=== PATIENT | female | born 1955 | race Caucasian/White ===

== ENCOUNTER 2018-08-10 09:40 | Outpatient (REF) | payer MEDICAID, SELFPAY ==
--- NOTE | 2018-08-10 09:20 | PAPFT_PTH ---
PATIENT: Haydee Brizuela LOC: [facility] U#:[id number] AGE/SX: 62/F ROOM: RE08/10/[address]: Magy Brito : 1955 BED: DIS: 08/10/2018 SPEC #: [id number] RECD: 08/11/18 12:54 STATUS: YULIA REBernadette #: [id number] ADELITA: 08/10/18 09:[address]: Magy Brito DEPT: [facility] Cytology RECD BY: Hailey Espitia ENTERED: 08/11/18 12:54 SP TYPE: PAPFT OTHR DR: Lexii Xiong Tissues: 1 - CX/ENDOCX FOR PAP SMEARS Procedures: PAP THIN PREP/UVM Screening HPV DNA PROBE Comments: [id number]
[2018-08-10 19:33] LABS: Cholesterol 186 mg/dL (50-200); Glucose 97 mg/dL (70-100); HDL Cholesterol 89 mg/dL (40-60); LDL CHOLESTEROL 77 mg/dL (<100); Triglyceride 60 mg/dL (30-150)
[2018-08-12 09:48] LABS: Hepatitis C Ab w Rflx HCV PCR Negative (NEGAT)
== END 2018-08-10 10:00 ==
LOC: NCHCN 09:40
PROVIDERS: PCP Family Medicine; Visit Provider Nurse Practitioner Family
DX: Z13.1 Encounter for screening for diabetes mellitus (principal); Z11.59 Encounter for screening for other viral diseases; Z13.220 Encounter for screening for lipoid disorders; Z12.4 Encounter for screening for malignant neoplasm of cervix; Z11.51 Encounter for screening for human papillomavirus (HPV); Z01.419 Encounter for gynecological examination (general) (routine) without abnormal findings
CPT/HCPCS: 80061; 82947; 83721; 86803; 88142; 87624

== ENCOUNTER 2020-04-20 11:59 | Outpatient (REF) | payer MEDICAID, SELFPAY ==
--- OUTSIDE RECORDS SUMMARY | 2020-04-20 12:05 | XMS_ITS ---
:1955 Author Care Team Providers Name Role Phone NETO LINDSEY NP Primary Care Provider [phone] RAVI SOTO MD General Surgeon [phone] Allergies Code Code System Name Reaction Severity Status Onset [id number] RxNorm Clams Hives ? Active ? NKDA ? Medications Name Status Start Date Stop Date ? ? aspirin 325 mg tablet Completed ? 10/27/2019 Take 1 tablet every day by oral route. ciprofloxacin 0.3 % eye drops Completed ? INSTILL 1 DROP INTO AFFECTED EYE(S) BY OPHTHALMIC ROUTE EVERY 2 HOURSWHILE AWAKE FOR 2 DAYS THEN 1 DROP EVERY 4 HRS WHILE AWAKE FOR 5 DAYS ibuprofen 200 mg tablet Active ? Not avai lable Take 1 tablet every 6 hours by oral route as needed. omeprazole 20 mg capsule,delayed release Active ? Not available Take 1 capsule every day by oral route. triamcinolone 0.1 % topical ointment Active ? Not available and dimethicone 5 % topical cream Zantac 150 mg tablet Active ? Not availab le Take 1 tablet twice a day by oral route as needed. Problems Name Status Onset Date Source ? Basal Cell Carcinoma of Skin Active 10/04/2019 ? Squamous Cell Carcinoma Active 10/04/2019 ? Anxiety Active 10/04/2019 ? Conjunctivitis Active 10/04/2019 ? Premature Atrial Contraction Active 10/04/2019 ? Gastroesophageal Reflux Disease Active 10/04/2019 ? Hiatal Hernia Active 10/04/2019 ? Arthritis Active 10/04/2019 ? 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 Procedures Date Name Performed by ? 03/14/2009 Colonoscopy Information not avai lable Notes: WNL 03/14/2009 EGD/Endoscopy Information not avai lable Notes: sm hiatal hernia, gastritis. ? Arthroscopic Surgery Information not mack ilable ? Knee Surgery Information not avai lable ? Tonsillectomy Information not avai lable ? Appendectomy Information not avai lable Results Lab Results Date Name Specimen Result Interpretation Description Value Range Status Address ? 11/14/2016 TSH, S ? Tsh 1.67 0.47-4.68 Final [facility] Serum or u[IU]/mL u[IU]/mL Hosp ital Lab Plasma (Internal) : [address] t 11/14/2016 CMP, S High g/r 148 mg/dL 74-106 Final [facility] Serum or mg/dL Hospital Lab Plasma (Internal) : [address] t ? ? S ? Bun 14 mg/dL 7-17 mg/dL Final [facility] Hospital L ab (Internal) : [address] t ? ? S ? Crea 0.70 mg/dL 0.52-1.04 Final [facility] mg/dL Hospital L ab (Internal) : [address] t ? ? S ? Ca 9.3 mg/dL 8.4-10.2 Final [facility] mg/dL Hospital L ab (Internal) : [address] t ? ? S ? Na 138 mmol/L 137-145 Final [facility] mmol/L Hospital L ab (Internal) : [address] t ? ? S ? K 3.7 mmol/L 3.5-5.1 Final [facility] mmol/L Hospital L ab (Internal) : [address] t ? ? S ? Cl 105 mmol/L 98-107 Final [facility] mmol/L Hospital L ab (Internal) : [address] t ? ? S ? Tco2 23.0 mmol/L 22.0-30.0 Final No [facility] mmol/L Hospital L ab (Internal) : [address] t ? ? S ? Tp 7.0 g/dL 6.3-8.2 Final [facility] g/dL Hospital L ab (Internal) : [address] t ? ? S ? Alb 4.3 g/dL 3.5-5.0 Final [facility] g/dL Hospital L ab (Internal) : [address] t ? ? S ? Tbil 0.5 mg/dL 0.2-1.3 Final [place] [facility] mg/dL Hospital L ab (Internal) : [address] t ? ? S ? Alp 61 U/L 38-126 U/L Final [facility] Hospital L ab (Internal) : [address] ? ? S ? Alt 23 U/L 9-52 U/L [facility] (S[facility] Hospital L ab (Internal) : [address] ? ? S ? Ast 33 U/L 14-36 U/L [facility] Hospital L ab (Internal) : [address] Past Encounters 10/27/2019 Gastroesophageal Reflux Disease without Esophagitis; Screening for Malignant Neoplasm of Colon Ravi Soto MD: [address], [place] [address], Ph. Social History Tobacco Smoking Status Never Smoker Vaccine List None recorded. Plan of Care Reminders Provider Appointments None ? ? recorded. Lab None ? ? recorded. Referral None ? ? recorded. Procedures None ? ? recorded. Surgeries None ? ? recorded. Imaging None ? ? recorded. Vitals 10/27/2019 12:30PM Office 15 Height Weight BMI Blood Pressure 175.9 cm 65.41 kg 21.1 kg/m2 122/78 mm[Hg] 08/31/2019 Height 175.9 cm
[2020-04-23 13:18] LABS: COVID-19 RT-PCR UVMMC Result Negative (Negative)
== END 2020-04-20 12:19 ==
LOC: NCHCN 11:59
PROVIDERS: PCP Nurse Practitioner Family; Visit Provider Nurse Practitioner Family
DX: Z20.828 Contact with and (suspected) exposure to other viral communicable diseases (principal)
CPT/HCPCS: U0003

== ENCOUNTER 2020-08-06 11:46 | Emergency (ER) | payer MEDICAID, SELFPAY ==
[2020-08-06] VITALS (37 sets, daily range): BP systolic 113–145; BP diastolic 70–86; PULSE 63–92; RESP 12–23; TEMP 36.6; O2SAT 95–98
--- NOTE | 2020-08-06 11:45 | RT.EKG_ITS ---
APPROVED REPORT Exam: Resting ECG Patient Location: E HR:84 bpm ECG Measurements Heart Rate 84 AXIS AZ 164 P 59 QRSd 108 QRS -56 QT 382 T 55 QTc 453 Conclusion Sinus rhythm...normal P axis, V-rate 60- 99 Left anterior fascicular block...axis(240,-40), init forces inf No STEMI. I have reviewed and interpreted ECG and agree with software generated interpretation.
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
[2020-08-06 12:13] LABS: Abs Immature Grans 0.02 10^3/uL (0.0-0.06); Absolute Basophil Count 0.04 10^3/uL (0.0-0.2); Absolute Eosinophil Count 0.05 10^3/uL (0.0-0.7); Absolute Lymphocyte Count 2.36 10^3/uL (1.2-3.4); Absolute Monocyte Count 0.45 10^3/uL (0.1-0.8); Absolute Neutrophil Count 5.64 10^3/uL (1.2-6.7); Basophils % 0.5; Eosinophils % 0.6; HCT 41.1 % (36.0-46.0); HGB 13.7 g/dL (11.2-15.7); Immature Grans % 0.2; Lymphocytes % 27.6; MCH 29.3 pg (27.0-33.0); MCHC 33.3 % (32.0-36.0); MPV 9.7 fL (8.0-11.0); Monocytes % 5.3; Neutrophils % 65.8; Nucleated RBC 0 %; Platelet Count 269 10^3/uL (130-400); RBC 4.67 10^6/uL (3.93-5.22); RDW 13.2 % (11.7-14.6); RDW-SD 42.5 fL; WBC 8.56 10^3/uL (4.4-10.8)
[2020-08-06 12:26] LABS: PTT Activated 23.4 sec (21.0-27.5); Prothrombin Time 10.4 sec (9.3-11.0)
--- NOTE | 2020-08-06 12:30 | DI.CT_ITS ---
EXAM: CT CHEST PE CTA CLINICAL HISTORY: palpitations, chest pressure, r/o acute PE/disease. TECHNIQUE: Imaging Protocol: Axial CT angiography was performed with multi-slice acquisition and mu lti-planar and/or 3D reconstructions. CONTRAST MATERIAL: Intravenous: Omnipaque 350 Contrast volume:structured data in ml COMPARISON: No exams were available for comparison FINDINGS: CT angiography of the chest was performed with intravenous infusion of 75 cc of Visipaque 320. The lungs are clear. No pleural effusion. Tracheobronchial tree appears intact. No evidence of pulmonary embolic disease. Thoracic aorta is of normal diameter, no thoracic aortic an eurysm or dissection, major branch vessels appear intact. No mediastinal or hilar adenopathy. Images obtained through the upper abdomen show unremarkable appearance of the visualized portions of the liver, spleen, pancreas, adrenals, and kidneys. IMPRESSION: Negative CT angiogram of the chest. No evidence of pulmonary embolic disease. RADIATION DOSE DELIVERED: 286.11mGy.cm Total DLP 286.11mGy.cm Total DLP DATA REPOSITORY: All CT scans at this facility are submitted to the National Radiology Data Registry (NRDR) Dose Index Registry (DIR) with the [employer] ([employer]). RADIATION OPTIMIZATION: All CT scans at this facility use at least one of these dose optimization te chniques: automated exposure control; mA and/or kV adjustment per patient size (includes targeted exa ms where dose is matched to clinical indication); or iterative reconstruction.
[2020-08-06 12:33] LABS: ALT 24 U/L (14-59); AST 18 U/L (15-37); Albumin 4.2 g/dL (3.4-5.0); Alkaline Phosphatase 66 U/L (46-116); Anion Gap 11.5 mmol/L (3-11); BUN 15 mg/dL (7-18); Bilirubin, Total 0.7 mg/dL (0.2-1.0); CO2 24.5 mmol/L (21.0-32.0); CREATININE 1.1 mg/dL (0.55-1.02); Calcium 9.5 mg/dL (8.5-10.1); Chloride 103 mmol/L (98-107); Estimated GFR 50.17 (mL/min/1.73m2); Glucose 112 mg/dL (74-106); Magnesium 2.1 mg/dL (1.8-2.4); Potassium 3.5 mmol/L (3.5-5.1); Sodium 139 mmol/L (136-145); Total Protein 7.1 g/dL (6.4-8.2); Troponin I < 0.05 ng/mL (<0.06)
[2020-08-06] MEDS: Ketorolac 30 MG/ML VIAL IVP (12:46)
[2020-08-06] MEDS: LORazepam 0.5 MG TAB PO (12:46)
[2020-08-06] MEDS: Normal Saline - Diluent 50 ML VIAL IV (13:14)
[2020-08-06] MEDS: Normal Saline 1,000 ML 1000 ML IV (13:21)
--- NOTE | 2020-08-06 14:45 | RT.EKG_ITS ---
APPROVED REPORT Exam: Resting ECG Patient Location: E HR:67 bpm ECG Measurements Heart Rate 67 AXIS IL 192 P 67 QRSd 104 QRS -46 QT 400 T 27 QTc 423 Conclusion Sinus rhythm...normal P axis, V-rate 60- 99 Left anterior fascicular block...axis(240,-40), init forces inf. No STEMI. I have reviewed and interpreted ECG and agree with software generated interpretation.
[2020-08-06 15:30] LABS: Troponin I < 0.05 ng/mL (<0.06)
== END 2020-08-06 16:13 | disposition home or self-care (01) ==
PROVIDERS: Emergency Provider Physician Assistant; PCP Nurse Practitioner Family
DX: R00.2 Palpitations (principal); R07.89 Other chest pain
CPT/HCPCS: 71275; 80053; 93005; 96361; 96374; 99285; 83735; 84484; 85025; 85610; 85730; 93010; 93225; 99284; J1885

== ENCOUNTER 2020-08-06 15:02 | Outpatient (RCR) | payer MEDICAID, SELFPAY ==
--- NOTE | 2020-08-06 15:00 | HOLTER_ITS ---
APPROVED REPORT Exam Type: HOLTER MONITOR APPLICATION Reason for Test: PALPITATIONS R00.2 Patient Location: O Conclusion This was a 48-hour Holter monitor ordered for palpitations Predominant rhythm was sinus with an average heart rate of 68. Minimum was 48, maximum 123 There were rare atrial and ventricular ectopic beats. There were several brief atrial runs Sinus bradycardia and Mobitz 1 second-degree AV block was noted during sleep There appeared to be an episode of atrial fibrillation lasting less than a minute, rate approximately 140, asymptomatic Patient symptoms seem to correlate to sinus rhythm
== END 2020-08-18 23:59 | disposition home or self-care (01) ==
LOC: RT 15:02
PROVIDERS: PCP Nurse Practitioner Family; Visit Provider Nurse Practitioner Family
DX: R00.2 Palpitations (principal)
CPT/HCPCS: 93225; 93226

== ENCOUNTER 2020-08-25 16:18 | Outpatient (REF) | payer MEDICAID, SELFPAY ==
[2020-08-25 19:39] LABS: TSH (W/Ref FT4) 2.45 uIU/mL (0.36-3.74)
[2020-08-28 10:29] LABS: Lyme Ab w Rflx to Lyme Confirm Negative (Negative)
[2020-08-30 00:46] LABS: Anaplasma phagocytophilum Negative (Negative); B. miyamotoi PCR Negative (Negative); Babesia divergens/MO-1 Negative (Negative); Babesia duncani Negative (Negative); Babesia microti Negative (Negative); Ehrlichia chaffeensis Negative (Negative); Ehrlichia ewingii/canis Negative (Negative); Ehrlichia muris eauclairensis Negative (Negative)
== END 2020-08-25 16:19 | disposition home or self-care (01) ==
LOC: NCHCN 16:18
PROVIDERS: PCP Nurse Practitioner Family; Visit Provider Physician Assistant
DX: I48.0 Paroxysmal atrial fibrillation (principal); I44.1 Atrioventricular block, second degree; M25.59 Pain in other specified joint
CPT/HCPCS: 87798; 84443; 86618

== ENCOUNTER 2020-08-28 12:13 | Outpatient (CLI) | payer MEDICAID, SELFPAY ==
--- NOTE | 2020-09-15 08:33 | W.ZIOMONITOR ---
Date of service: 09/15/20 Time of Service: 08:33 14 Day [employer] Technician [employer] Referring Provider:: Lindsey Indications:: A Note: This is a 14-day monitor order for indication of atrial fibrillation. ?The patient was in normal sinus rhythm for the majority of the recording with an average heart rate of 70 bpm. ?There were frequent (205) episodes of SVT with the longest lasting 43 beats. The fastest rate was 198 bpm. ?There were rare PACs and rare PVCs. ?There were no episodes of atrial fibrillation, no pauses greater than 3 seconds and no evidence of high degree heart block. ?There were 35 patient triggered events 20 of which were associated with SVT.
== END 2020-08-28 12:14 | disposition home or self-care (01) ==
PROVIDERS: PCP Nurse Practitioner Family; Visit Provider Physician Assistant
DX: I48.0 Paroxysmal atrial fibrillation (principal); I44.1 Atrioventricular block, second degree
CPT/HCPCS: 93246

== ENCOUNTER 2020-09-30 19:20 | Emergency (ER) | payer MEDICAID, SELFPAY ==
--- NOTE | 2020-09-30 19:21 | W.ED.GENAD ---
Discharge Plan Disposition Patient Disposition: HOME Condition: Stable Discharge Details Clinical Impression: Foreign body of skin of hand Primary Care Provider: Magy Brito ED Provider: Mallorie Fonseca Home Meds and New Rx's Prescriptions: Continued Vitamin D3 Complete 18 mg iron-800 mcg-150 mg Tablet 2 tab PO RF: 0 lysine 1,000 mg Tablet 1,000 mg PO DAILY RF: 0 Discharge Instructions Instructions: Soft Tissue Foreign Body (ED), Tick Bite (ED) Additional Instructions: It is unclear at this time if the foreign body noted within your skin was a tick or other foreign body material. You are being treated with a prophylactic dose of doxycycline in case this was possibly a tick. Keep the area clean and dry. Wash with soap and water and apply topical antibiotic ointment if you develop any redness, pain or swelling. If you develop any fever, chills, body aches or bull's-eye rash, follow-up with your primary care doctor or return to the emergency department as additional antibiotic treatment for potential Lyme disease may be recommended. Follow-up with your primary care doctor in 1 week. Return to the emergency department with any worsening or new concerning symptoms. Discharge Data Discharge Physician: Mallorie Fonseca Medical Decision Making 65-year-old female presents for concern for possible tick in her left hand noticed today. There is a 2 x 1 mm linear brown foreign body noted within the left medial aspect of hand. This was removed easily and disintegrated with forceps. Examination of the foreign body revealed that it appeared more consistent with debris or dirt rather than a tick or insect. As patient has not developed any flulike symptoms or bull's-eye rash, do not see an indication for treatment for Lyme disease but as she was concerned about it possibly being a tick, will give a dose of doxycycline. She was advised to follow-up with her primary care doctor or return to the emergency department if she develops any worsening or new concerning symptoms. Medical Records Medical records reviewed: Yes I reviewed the patient's medical records. HPI General Mode of arrival: ambulatory. Date/Time Provider Initiated Documentation: 09/30/20 19:20. Limitations to Documentation: no limitations. Information obtained by: patient. HPI Narrative: Pt is a 65yo F who presents to the ED with a complaint of a possible tick embedded in her left hand. Patient states she noticed it a few hours ago but states it may have been present for a few days. She denies any fever, chills, body aches or bull's-eye rash. Related Data Home Medications Medication Instructions Recorded Confirmed Vitamin D3 Complete 2 tab PO 09/30/20 lysine 1,000 mg PO DAILY 09/30/20 09/30/20 Allergies Allergy/AdvReac Type Severity Reaction Status Date / Time clams AdvReac hives Unverified 09/30/20 19:28 General KEVIN: 2 Review of Systems All systems reviewed & are unremarkable except as noted in HPI and below Constitutional Constitutional: Reports as per HPI, Denies chills and Denies fever(s) Eyes Eyes: Denies blurry vision ENT Ears, Nose, Mouth, and Throat: Denies dizziness, Denies sore throat and Denies throat swelling Cardiovascular Cardiovascular: Denies chest pain and Denies dyspnea Respiratory Respiratory: Denies cough and Denies dyspnea Gastrointestinal Gastrointestinal: Denies abdominal pain, Denies diarrhea and Denies vomiting Genitourinary Genitourinary: Denies hematuria and Denies dysuria Musculoskeletal Musculoskeletal: Denies back pain and Denies numbness Integumentary/Breasts Skin/Breast: Denies lesions and Denies rash Neurologic Neurologic: Denies dizziness, Denies localized weakness and Denies numbness Allergic/Immunologic Allergic/Immunologic: Denies throat swelling [facility] Medical History (Updated 09/30/20 @ 19:40 by Mallorie Fonseca DO) Arthritis Basal cell carcinoma Squamous cell carcinoma Surgical History (Updated 08/06/20 @ 11:57 by Mallorie Fonseca DO) Appendectomy History of knee surgery S/P skin cancer resection Tonsillectomy and adenoidectomy Social History Smoking/Tobacco Use Status: Former Tobacco Use Smoking risk assessment performed?: Yes Alcohol Intake: current Drug use: Never Substance use type: does not use Do you feel safe at home: No Do you feel safe in your relationship?: No Additional Social history: patient states she does not feel safe at home emotionally Exam Const General: cooperative, healthy appearing and no acute distress HENMT Head: normal to inspection Mouth: oral mucosae normal Eyes General: appearance normal, both eyes and all related structures Neck Neck: normal visual inspection Resp Effort & Inspection: normal respiratory effort and able to speak in complete sentences Cardio Rate: regular rate Skin General skin exam: no rashes or lesions noted Neuro General: patient alert, patient awake and patient oriented x3 Motor: muscle tone normal throughout Extrem Hand/finger images: 1. 2 mm brown linear foreign body noted superficially within left medial proximal hand. No surrounding erythema, edema, ecchymosis, induration, fluctuance, drainage or bleeding. Psych Appearance: grossly normal Affect: normal affect
[2020-09-30 19:24] VITALS: BP 122/74; PULSE 66; RESP 18; TEMP 36.7; O2SAT 98
[2020-09-30] MEDS: Doxycycline Hyclate 100 MG CAP PO (19:43)
== END 2020-09-30 19:50 | disposition home or self-care (01) ==
PROVIDERS: Emergency Provider Physician Assistant; PCP Nurse Practitioner Family
DX: S60.562A Insect bite (nonvenomous) of left hand, initial encounter (principal); S61.442A Puncture wound with foreign body of left hand, initial encounter; W57.XXXA Bitten or stung by nonvenomous insect and other nonvenomous arthropods, initial encounter
CPT/HCPCS: 99283

== ENCOUNTER 2021-01-10 09:13 | Outpatient (CLI) | payer MEDICAID, SELFPAY ==
--- OUTSIDE RECORDS SUMMARY | 2021-01-10 09:16 | XMS_ITS ---
:1955 Author Care Team Providers Name Role Phone RAVI STOO MD General Surgeon [phone] GURINDER CLINTON MD Primary Care Provider [phone] ELINOR RICO MD Bicycle Taxi Driver [phone] Allergies Code Code System Name Reaction Severity Status Onset Adhesive ? ? Active ? 754841 RxNorm Clams Hives ? Active ? NKDA ? Notes: clams only, tolerates oth er seafood, no contrast allergy Medications Name Status Start Date Stop Date ? ? aspirin 325 mg tablet Completed ? 10/27/2019 Take 1 tablet every day by oral route. ciprofloxacin 0.3 % eye drops Completed ? INSTILL 1 DROP INTO AFFECTED EYE(S) BY OPHTHALMIC ROUTE EVERY 2 HOURSWHILE AWAKE FOR 2 DAYS THEN 1 DROP EVERY 4 HRS WHILE AWAKE FOR 5 DAYS ibuprofen 200 mg tablet Completed ? 09/12/19 Take 1 tablet every 6 hours by oral route as needed. lysine 500 mg tablet Active ? Not availab le Take 1 tablet every day by oral route. omeprazole 20 mg capsule,delayed release Completed ? 09/11/2020 Take 1 capsule every day by oral route. triamcinolone 0.1 % topical ointment Active ? Not available and dimethicone 5 % topical cream Vitamin C 250 mg tablet Active ? Not avai lable 1-2 tabs daily Vitamin D3 Active ? Not available 2 tablets daily 1000 mg each Zantac 150 mg tablet Completed ? 09/11/2020 Take 1 tablet twice a day by oral route as needed. zolpidem 5 mg tablet Completed ? 11/30/2020 take 1-2 PO night of sleep study if needed Notes: 07/30/20: Pt reports she i s taking no prescription meds at this time, only vitamin supplements Problems Name Status Onset Date Source ? Basal Cell Carcinoma of Skin Active 10/04/2019 ? Squamous Cell Carcinoma Active 10/04/2019 ? Anxiety Active 10/04/2019 ? Conjunctivitis Active 10/04/2019 ? Premature Atrial Contraction Active 10/04/2019 ? Gastroesophageal Reflux Disease Active 10/04/2019 ? Hiatal Hernia Active 10/04/2019 ? Arthritis Active 10/04/2019 ? 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 Cannabis Abuse Active 09/13/2020 ? Second Degree Atrioventricular Block Active 09/13/2020 ? Atrial Fibrillation Active 09/13/2020 ? Joint Pain Active 09/13/2020 ? Daytime Somnolence Active 09/13/2020 ? Screening Colonoscopy Active 09/13/2020 ? 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 Procedures Date Name Performed by ? 03/14/2009 Colonoscopy Information not avai lable Notes: WNL 03/14/2009 EGD/Endoscopy Information not avai lable Notes: sm hiatal hernia, gastritis. ? Arthroscopic Surgery Information not mack ilable ? Knee Surgery Information not avai lable ? Tonsillectomy Information not avai lable ? Appendectomy Information not avai lable 09/11/2020 US, Echocardiogram, Transthoracic, [facility] Radiology (Internal) Complete [address] [place], [place] [id number] (Work Place) Results Lab Results Date Name Specimen Result Interpretation Description Value Range Status Address ? 07/30/2020 CBC W/ BLD ? Wbc 7.0 5.0-10.0 Final Nort [facility] Auto Diff 10*3/uL 10*3/uL Count [facility] L ab (Internal) : [address] ? ? BLD ? Rbc 4.57 4.10-5.30 Final [place] 10*6/uL 10*6/uL [facility] L ab (Internal) : [address] ? ? BLD ? Hgb 13.6 g/dL 12.0-16.0 Final Nort h g/dL [facility] L ab (Internal) : [address] ? ? BLD ? Hct 40.8 % 37.0-47.[address] [facility] L ab (Internal) : [address] ? ? BLD ? Mcv 89.3 fL 80.0-96.0 Final [facility] L ab (Internal) : [address] ? ? BLD ? Mch 29.8 pg 26.0-32.0 Final [facility] L ab (Internal) : [address] ? ? BLD ? Mchc 33.3 g/dL 31.0-35.0 Final Nort h g/dL [facility] L ab (Internal) : [address] ? ? BLD ? Rdw 13.3 % 11.5-14.[address] [facility] L ab (Internal) : [address] ? ? BLD ? Plt 273 130-450 Final [place] 10*3/uL 10*3/uL [facility] L ab (Internal) : [address] [place] t ? ? BLD ? Anc 5.33 ? Final [place] 10*3/uL [facility] L ab (Internal) : [address] ? ? BLD High Nlr 4.20 0.00-3.20 Final [facility] L ab (Internal) : [address] ? ? BLD High Neutro 75.8 % 40.0-75.[address] [facility] L ab (Internal) : [address] Robert t ? ? BLD Low Lymph 18.1 % 20.0-50.[address] [facility] L ab (Internal) : [address] [place] t ? ? BLD ? Bledsoe 5.4 % 2.0-10.0 % Final [facility] L ab (Internal) : [address] [place] t ? ? BLD Low Eos 0.3 % 1.0-6.0 % Final [facility] L ab (Internal) : [address] [place] t ? ? BLD ? Baso 0.3 % 0.0-1.0 % Final [facility] L ab (Internal) : [address] ? ? BLD ? Ig 0.1 % 0.0-0.9 % Final [facility] L ab (Internal) : [address], Robert t 07/30/2020 CK S ? Cpk 71 U/L 30-135 U/L Final No rth ([facility] Hospital Lab Total, (Internal) : Serum [address] t 07/30/2020 CMP, Serum S High g/r 117 mg/dL 74-106 Final [place] or Plasma mg/dL [facility] (Internal) : [address] t ? ? S ? Bun 14 mg/dL 7-17 mg/dL Final [facility] (Internal) : [address] t ? ? S ? Crea 1.00 0.52-1.04 Final [place] mg/dL mg/dL [facility] (Internal) : [address] t ? ? S ? Ca 9.3 mg/dL 8.4-10.2 Final [place] mg/dL [facility] (Internal) : [address] t ? ? S ? Na 141 137-145 Final [place] mmol/L mmol/L [facility] (Internal) : [address] t ? ? S ? K 3.8 3.5-5.1 Final [place] mmol/L mmol/L [facility] (Internal) : [address] t ? ? S ? Cl 105 98-107 Final [place] mmol/L mmol/L [facility] (Internal) : [address] t ? ? S ? Tco2 25.0 22.0-30.0 Final [place] mmol/L mmol/L [facility] (Internal) : [address] t ? ? S ? Tp 6.6 g/dL 6.3-8.2 Final [place] g/dL [facility] (Internal) : [address] t ? ? S ? Alb 4.3 g/dL 3.5-5.0 Final [place] g/dL [facility] (Internal) : [address] t ? ? S ? Tbil 0.4 mg/dL 0.2-1.3 Final [place] mg/dL [facility] (Internal) : [address] t ? ? S ? Alp 62 U/L 38-126 U/L Final [facility] L ab (Internal) : [address] t ? ? S ? Alt (Sgpt) 15 U/L 9-52 U/L Final [facility] L ab (Internal) : [address] t ? ? S ? Ast (Sgot) 23 U/L 14-36 U/L Final No rth [facility] (Internal) : [address] 07/30/2020 Magnesium, S ? mg 2.2 mg/dL 1.6-2.3 Final [place] QN, Serum mg/dL [facility]osp[facility] Lab (Internal) : [address] 07/30/2020 Troponin S ? Trop <0.06 0.00-0.06 Final N orth I, Serum NG/mL NG/mL [facility] or [facility] Lab (Internal) : [address] 07/30/2020 EKG Done ? No ? ? ? Nort h by ED observation Count ry recorded. Hospita l Lab (Internal) : [address] 11/14/2016 TSH, Serum S ? Tsh 1.67 0.47-4.68 Final [place] or Plasma u[IU]/mL u[IU]/mL [facility] L [facility] (Internal) : [address] 11/14/2016 CMP, Serum S High g/r 148 mg/dL 74-106 Final [facility] or Plasma mg/dL [facility] (Internal) : [address] t ? ? S ? Bun 14 mg/dL 7-17 mg/dL Final Nort h [facility] Hospital L ab (Internal) : [address] ? ? S ? Crea 0.70 0.52-1.04 Final [facility] mg/dL mg/dL [facility] (Internal) : [address] t ? ? S ? Ca 9.3 mg/dL 8.4-10.2 Final [facility] mg/dL [facility] (Internal) : [address] t ? ? S ? Na 138 137-145 Final [place] mmol/L mmol/L [facility] (Internal) : [address] t ? ? S ? K 3.7 3.5-5.1 Final [place] mmol/L mmol/L [facility] (Internal) : [address] t ? ? S ? Cl 105 98-107 Final [place] mmol/L mmol/L [facility] (Internal) : [address] t ? ? S ? Tco2 23.0 22.0-30.0 Final [place] mmol/L mmol/L [facility] L ab (Internal) : [address] t ? ? S ? Tp 7.0 g/dL 6.3-8.2 Final [place] g/dL [facility] L ab (Internal) : [address] ? ? S ? Alb 4.3 g/dL 3.5-5.0 Final [place] g/dL [facility] L ab (Internal) : [address] t ? ? S ? Tbil 0.5 mg/dL 0.2-1.3 Final [place] mg/dL [facility] L ab (Internal) : [address] t ? ? S ? Alp 61 U/L 38-126 U/L Final [facility] L ab (Internal) : [address] t ? ? S ? Alt (Sgpt) 23 U/L 9-52 U/L Final [facility] L ab (Internal) : [address] t ? ? S ? Ast (Sgot) 33 U/L 14-36 U/L Final No rth [facility] L ab (Internal) : [address] t Past Encounters 01/10/2021 Paroxysmal Atrial Fibrillation Elinor Rico MD: [address] [place] [address], Ph. 12/12/2020 Periodic Leg Movements of Sleep; Atrial Fibrillation; Pain in Right Knee Dary Sebastian MEDICAL I D SALES: [address] [place] [phone], Ph. 11/07/2020 Paroxysmal Atrial Fibrillation Elinor Rico MD: [address] [place] [address], Ph. 09/14/2020 Excessive Daytime Sleepiness - Normal Ni ght Sleep Dary Sebastian MEDICAL I D SALES: [address] [place] [phone], Ph. 09/11/2020 Paroxysmal Atrial Fibrillation; Second D egree Atrioventricular Block Elinor Rico MD: [address] [facility] [place] [address], Ph. 10/27/2019 Gastroesophageal Reflux Disease without Esophagitis; Screening for Malignant Neoplasm of Colon Ravi Soto MD: [address], [place] [address], Ph. Social History Tobacco Smoking Status Never Smoker Vaccine List None recorded. Plan of Care Reminders Provider Appointments None ? ? recorded. Lab None ? ? recorded. Referral None ? ? recorded. Procedures None ? ? recorded. Surgeries None ? ? recorded. Imaging None ? ? recorded. Vitals 12/12/2020 02:00PM Office 30 Height Weight BMI Blood Pressure 175.9 cm 68.49 kg 22.1 kg/m2 102/62 mm[Hg] 11/07/2020 11:20AM Follow Up 20 Height Weight BMI Blood Pressure 175.9 cm 68.5 kg 22.1 kg/m2 104/72 mm[Hg] 09/14/2020 10:00AM New Patient 45 Height Weight BMI Blood Pressure 175.9 cm 67.31 kg 21.8 kg/m2 120/75 mm[Hg] 09/11/2020 11:20AM Consult 40 Height Weight BMI Blood Pressure 175.9 cm 67.9 kg 21.9 kg/m2 111/82 mm[Hg] 10/27/2019 12:30PM Office 15 Height Weight BMI Blood Pressure 175.9 cm 65.41 kg 21.1 kg/m2 122/78 mm[Hg] 08/31/2019 Height 175.9 cm
--- OUTSIDE RECORDS SUMMARY | 2021-01-10 09:16 | XMS_ITS | Encounter Summary ---
:1955 Author Care Team Providers Name Role Phone Yan Montero MD Primary Care Provider [phone] Sudha Rico MD Printing Roller Polisher [phone] Ravi Agrawal MD General Surgeon [phone] Reason for Visit PAF ? Paroxysmal Atrial Fibrillation; [facility] - Audio/Phone; Follow Up Event Obtained verbal consent for phone appoin tment. Name and verbally verified by patient Assessment and Plan 1. Paroxysmal atrial fibrillatio n The patient has had several ep isodes of self-limited paroxysmal atrial fibrillation She does not currently meet criteria for anticoagulation for stroke prevention Echocardiogram shows no structural heart disease. She is in sinus rhythm today. She describes occasional palpitations not specific for recurrence of atrial fibrillation Subsequent cardiac monitoring has showed no recurrence of dysrhythmia There is concern that her dysrhythmia mi ght have been related temporally to receipt of the [employer] Covid vaccine At this point I do not feel additional c ardiac testing or follow-up is indicated I was not able to personally address the patient's concerns regarding potential need for Covid booster, or which vaccine to consider We have not scheduled a follow-up but re main available should new questions or concerns arise Discussion Note: None recorded.Patient educational handouts: No information available. Plan of Care Reminders Provider Appointments Follow up on or around Jun Sally09/09/2021 MD Trisha Lab None ? ? recorded. Referral None ? ? recorded. Procedures None ? ? recorded. Surgeries None ? ? recorded. Imaging None ? ? recorded. Medications Name Start Date ? ? lysine 500 mg tablet ? Take 1 tablet every day by oral route. triamcinolone 0.1 % topical ointment and dimethicone 5 % topical ? cream Vitamin C 250 mg tablet ? 1-2 tabs daily Vitamin D3 ? 2 tablets daily 1000 mg each Notes: 07/30/20: Pt reports she i s taking no prescription meds at this time, only vitamin supplements Medications Administered None recorded. Vitals None recorded. Results Lab Results None recorded. Allergies Code Code System Name Reaction Severity Onset Adhesive ? ? ? 450459 RxNorm Clams Hives ? ? NKDA ? ? ? Notes: clams only, tolerates oth er seafood, no contrast allergy Problems Name Status Onset Date Source ? [...] lable ? Appendectomy Information not avai lable Vaccine List None recorded. Social History Tobacco Smoking Status Never Smoker Animal exposure? Y Notes: cat What is your level of alcohol None consumption? Live alone or with others? with others Notes: fri end Are you currently employed? N Have you used IV drugs? N Are you blind or do you have N Notes: w ears glasses difficulty seeing? What is your code status? 0 Hard of hearing or deaf in one N or both ears? Do you or have you ever used Never used electronic e-cigarettes or vape? cigarettes Do you have an advanced N directive? What is your level of caffeine Occasional Notes: little bit of consumption? tea Do you feel safe at home? Y Have you fallen in the last 3 N months? Family History Relation Problem Onset Age of Age Notes Paternal Grandmother Peptic ulcer (No N/A (No Not es) Information) Unspecified Relation Crohn's disease (No N/A neph ew Information) Functional Status No Impairment. Past Encounters 01/10/2021 Paroxysmal Atrial Fibrillation Sudha Rico MD: [address] [place] [address], Ph. 12/12/2020 Periodic Leg Movements of Sleep; Atrial Fibrillation; Pain in Right Knee Dary Sebastian HAND II TUBE BENDER: [address] [place] [phone], Ph. History of Present Illness Note: This visit was performed virtually an audio connection via phone. As such, the physical examination is necessarily limited. The risks and benefits of the use of this alternative platform were discussed with the patient and or guardian and verbal consent was obtained. My assessment and plans are based on such examination. Further evaluation, including in-person examination, may be needed depending on the response to management or today's recommendation.

The patient is home.

The provider is {{home in the office*}}.

The patient has been positively identified and has consented to a phone visit.

I have determined that it was clinically appropriate to deliver health care services to the patient by audio-only telephone.
This is a telephone follow-up performed primarily to review results of ambulatory monitoring which was performed in October due to prior episodes of transient paroxysmal atrial fibrillation. The monitor was entirely normal without significant dysrhythmia, s pecifically no atrial fibrillation<div>In general the patient feels well. She has had no concerning recurrent palpitations.</div><div>It is suspected that her symptomatic atrial fibrillation was precipitated by her receipt of the [employer] Covid vaccine. She has concerns if additional Covid immunizations become indicated

The time spent incounseling and coordination of care was

Patient is receivingaudio-only care due to: {{Broadband Access / Reliability Concerns* Technical Barrier Other than Broadband Patient Comfort or Preference Clinical Indication Other:}}
</div>Review of Systems: ROS as noted in the HPI Review of Systems None recorded. Physical Exam ? Notes: No physical examination, mauri ne visit
--- OUTSIDE RECORDS SUMMARY | 2021-01-10 09:17 | XMS_ITS | Encounter Summary ---
:1955 Author Care Team Providers Name Role Phone Yan Montero MD Primary Care Provider [phone] Sudha Rico MD Health Inspector Food [phone] Ravi Agrawal MD General Surgeon [phone] Reason for Visit None recorded. Assessment and Plan 1. Periodic leg movements of sle ep PSG with PLMi 48.8/hr and PLMa i 4.4/hr. It is possible this could be contributing to daytime sleepiness. I discussed the option of starting a dopamine agonist and checking a ferritin level. Sh jessica prefers to hold on Rx med at this time but is interested in checking her ferritin level. Will recommend iron supplementation with vitamin C if this is less than 75 as low ferritin may cause RLS. She i s instructed that caffeine and chocolate may worsen RLS symptoms and they may be improved by exercise. Also that certain medications may worsen symptoms to include over the counter antihistamines taken for allergies. I provided greater than 30 minutes in [facility] care of this patient, more than half the time was spent in [id number] counseling. 2. Atrial fibrillation She was referred for evaluatio n after developing a-fib after her Covid vaccine. Her recent PSG did not reveal a ny sleep disordered breathing. She had minimal supine sleep but reports she katz s not sleep on her back at home. 3. Pain in right knee ? ferritin, serum or plasma Discussion Note: None recorded.Patient educational handouts: No information available. Plan of Care Reminders Provider Appointments None ? ? recorded. Lab Ferritin, [facility] Serum or Plasma 12/12/2020 Referral None ? ? recorded. Procedures None [...] vitamin supplements Medications Administered None recorded. Vitals Height Weight BMI Blood Pressure 5 ft 9.25 in 151 lbs 22.1 kg/m2 102/62 mm[Hg] Results Lab Results None recorded. Allergies Code Code System Name Reaction Severity Onset Adhesive ? ? ? 796819 RxNorm Clams Hives ? ? NKDA ? [...] Information) Functional Status No Impairment. Past Encounters 12/12/2020 Periodic Leg Movements of Sleep; Atrial Fibrillation; Pain in Right Knee Dary Sebastian, [employer] [facility] ATTENDANT: [address] [place] [id number], Ph. History of Present Illness Note: <p>Haydee Brizuela has a visit for PSG results.</p><p>
</p><p>Haydee was seen by me on 09/14/20. She has a medical history to include paroxysmal a-fib, anxiety, GERD and artritis. Her a-fib started immediately after she received maria antonia Covid vaccine on 07/30/20. Labs 07/30/20 mg wnl, CMP glucose 117, CBC wnl, CPK wnl. Holter 08/10/20 one brief run a-fib lasting <1 minute.</p><p>Haydee tells me she had to go to the ER again on August 31 because she was in a-fib again. They did not give her anything because the rate was <120 bpm and she spontaneously converted after about 24 hours. </p><p>She noted symptoms of daytime sleepiness (ESS 12), snoring, nocturia, night sweats, morning headaches and nocturnal heartburn. She was referred for evaluation given her a-fib history.</p><p>Polysomnogram was completed on </p>{{DATE 10/18/2020}} (BMI 21.75) and I reviewed the results with {{him her*}} in detail today. Sleep efficiency was {{80*}}%, AHI {{0.3# NUMBER}}/hr, RDI {{2.5# NUMBER}}/hr, REM AHI {{0# NUMBER}}/hr, REM RDI {{0# NUMBER}}/hr, supine AHI {{34# NUMBER}}/hr, right lateral AHI {{0# NUMBER}}/hr, left lateral AHI {{0# NUMBER}}/hr, sp02 maria guadalupe {{93# NUMBER}}%, {{0# NUMBER}} minutes were spent at a saturation <88%, arousal index {{12# NUMBER}}/hr, PLMi {{48.8# NUMBER}}/hr, PLM arousal index {{ 4.4# NUMBER}}/hr. EKG showed {{NSR*}}. She took Ambien 10 mg for the study. Intermittent snoring heard. <div>
</div><div>Haydee says her sleep the night of the study was not quite the same because she took AMbien and things felt altered. She feels she got a lot of sleep with the medication.</div><div><p></p><p>
</p&g t;<p></p>{{Patient}}<p></p></div>Review of Systems: ROS as noted in the HPI Review of Systems None recorded. Physical Exam ? Notes: General: A&O, well groomed { {over weight obese morbidly obese normal weight * thin}}.

HE AD: normocephalic & atraumatic.

EYES: non icteric.

LUNGS: CT A all eisenberg. Good air movement.

CARDIO: RRR without murmur, gallop o r thrill.

NEURO: A&O. Normal gait.

PSYCH: Normal m ood and affect.

CUTANEOUS: no overt lesions or rashes
--- OUTSIDE RECORDS SUMMARY | 2021-01-10 09:17 | XMS_ITS | Encounter Summary ---
:1955 Author Care Team Providers Name Role Phone Yan Montero MD Primary Care Provider [phone] Sudha Rico MD Transplant Nurse [phone] Ravi Agrawal MD General Surgeon [phone] Reason for Visit Atrioventricular block (AV block); PAF ? Paroxysmal Atrial Fibrillation Assessment and Plan 1. Paroxysmal atrial fibrillatio n The patient has had several ep isodes of self-limited paroxysmal atrial fibrillation She does not currently meet criteria for anticoagulation for stroke prevention Echocardiogram shows no structural heart disease. She is in sinus rhythm today. She describes occasional palpitations not specific for recurrence of atrial fibrillation As noted, results of the Zio patch are n ot currently available. I would like to arrange phone follow-up for review when they are For now no additional testing or medicat ions are recommended Discussion Note: None recorded.Patient educational handouts: No [...] BMI Blood Pressure 5 ft 9.25 in 68.5 kg 22.1 kg/m2 104/72 mm[Hg] Results Lab Results None recorded. Allergies Code Code System Name Reaction Severity Onset Adhesive ? ? ? 107979 RxNorm Clams Hives ? ? NKDA ? [...] Information) Functional Status No Impairment. Past Encounters 11/07/2020 Paroxysmal Atrial Fibrillation Sudha Rico MD: [address] [facility] [place] [address], Ph. History of Present Illness Note: <p>This 65-year-old woman presents for cardiac follow-up and to review results of testing. After her last visit she had an echocardiogram performed. This was normal. Left ventricular function was normal, chamber sizes were normal, there was no valvular disease
</p><p>She also had a Zio patch performed. These results are not available
</p><p>
</p><p>She reports she continues to get palpitations. She describes this as brief fluttering but nothing sustained that would cause her to present for medical evaluation.
</p><p>She describes a sensation of lightheadedness which she feels may be visual or feel like motion sickness
</p><p>
</p><p>She has had a sleep evaluation. These results are not available
</p><p>
</p><p>She has st opped using much in the way of caffeine and has given up alcohol
</p><p>
</p><p>EKG today shows sinus rhythm and is within normal limits
</p>Review of Systems: ROS as noted in the HPI Review of Systems None recorded. Physical Exam ? Cardiology Brief Exam Reported By: Patient Basic Cardio PE: HEENT: normal thyroid, no br uit, JVP < 6. Lungs: clear to auscultation. Cardio: s1 nor mal, s2 normal, no murmurs, no gallops. Abdomen: non tender. Extremi ties: no edema
[2021-01-10 12:23] LABS: Ferritin 37 ng/mL (8-252)
== END 2021-01-10 09:14 | disposition home or self-care (01) ==
LOC: LBO 09:15
PROVIDERS: PCP Nurse Practitioner Family; Visit Provider Nurse Practitioner
DX: M25.561 Pain in right knee (principal)
CPT/HCPCS: 36415; 82728

== ENCOUNTER 2021-02-03 10:09 | Emergency (ER) | payer MEDICAID, SELFPAY ==
[2021-02-03 10:13] VITALS: BP 145/92; PULSE 84; RESP 18; TEMP 36.8; O2SAT 99
--- NOTE | 2021-02-03 10:30 | DI.RAD_ITS ---
Exam(s) XR FEMUR RT EXAM: XR FEMUR RT CLINICAL HISTORY: Right hip pain. TECHNIQUE: 2D digital imaging was performed of the right femur. Four images were obtained. AP and l ateral views were obtained. COMPARISON: No exams were available for comparison FINDINGS: BONES: No acute fracture is present. No bony destructive lesion is seen. Visualized portion of knee a nd hip joints are unremarkable. SOFT TISSUE: Normal. IMPRESSION: Unremarkable radiographs of the right femur. DATA REPOSITORY: RADIATION DOSE DELIVERED:
--- NOTE | 2021-02-03 10:30 | DI.RAD_ITS ---
Exam(s) XR PELVIS AP EXAM: XR PELVIS AP CLINICAL HISTORY: right hip pain. TECHNIQUE: 2D digital imaging was performed. One view is obtained. COMPARISON: No exams were available for comparison FINDINGS: BONES: No acute fracture is present. No bony destructive lesion is seen. JOINTS: No dislocation present. No joint space narrowing is present. SOFT TISSUE: Normal. IMPRESSION: No acute abnormality. DATA REPOSITORY: RADIATION DOSE DELIVERED:
--- NOTE | 2021-02-03 10:39 | ED.GENADUL_ITS ---
Discharge Plan Disposition Patient Disposition: HOME Condition: Stable Discharge Details Clinical Impression: Hip pain, right Primary Care Provider: Tabby Maier ED Provider: Connie Camilo Home Meds and New Rx's Prescriptions: No Action Vitamin D3 Complete 18 mg iron-800 mcg-150 mg Tablet 2 tab PO DAILY RF: 0 lysine 1,000 mg Tablet 1,000 mg PO DAILY RF: 0 Discharge Instructions Instructions: Leg Pain (ED) Additional Instructions: Take the pain medications with food as directed. No driving or operating heavy machinery while on medications. Use may make you sleepy. Increase oral fluids. You may also try lidocaine patches which you can get lkeg-hap-qgoffzi. Alternate ice and heat. Follow up with primary care provider in 3-5 days. Return to ED sooner if any worsening Pain, abd pain, problems urinating, or concerns. Increase oral fluids. X-rays show no evidence for acute abnormality or fracture. A radiologist will do an overread at a later time if there is anything that is abnormal we will call you if needed. Referrals: Tabby Maier [Primary Care Provider] - 3 days Medical Decision Making X-ray right femur, AP pelvis, hydrocodone and Flexeril ordered. Patient reevaluation: Still complaining of right hip pain part medication at [place] nothing to help pain. Additional hydrocodone Tylenol tablet ordered. I did offer her lidocaine patches and discussed urinalysis which patient declined at this time. Imaging protocol: XR Right femur. Views: 2 views. COMPARISON: CR XR PELVIS AP 03/02/2021 11:23 FINDINGS: Bones/joints: No fracture or other osseous abnormality. Hip joint and knee joint are grossly intact. Soft tissues: Unremarkable. IMPRESSION: Normal femur. Imaging protocol: XR pelvis. Views: 1 or 2 view. COMPARISON: No relevant prior studies available. FINDINGS: Bones/joints: Unremarkable. No acute fracture. Sacroiliac joints, hip joints and pubic symphysis all are intact. Soft tissues: Unremarkable. IMPRESSION: No acute findings Discussed findings of x-rays with patient who verbalized understanding. Instructed to follow-up with PCP and/or orthopedics if continued pain. Instructed on RICE procedures. HPI General Mode of arrival: ambulatory . Date/Time Provider Initiated Documentation: 02/03/21 10:09 . Limitations to Documentation: no limitations . Information obtained by: patient and RN notes reviewed . HPI Narrative: 65-year-old female presents to the ER chief complaint right groin and hip pain which has gotten worse over the last 3 to 4 days. Patient reports going on some long hikes the last month. She does have a history of arthritis in her knees. She denies any problems urinating or burning with urination no abdominal pain denies any nausea vomiting diarrhea or fever. She denies any radiation of the pain into her legs. No midline L-spine tenderness. She is complaining of posterior right hip and anterior right hip pain. She reports initially it was worse at night with lying down now it is constant. Related Data Home Medications Medication Instructions Recorded Confirmed Vitamin D3 Complete 2 tab PO DAILY 09/30/20 02/03/21 lysine 1,000 mg PO DAILY 09/30/20 02/03/21 Allergies Allergy/AdvReac Type Severity Reaction Status Date / Time clams AdvReac hives Unverified 02/03/21 10:22 General Stated Complaint: Orthopedic KEVIN: 4 Review of Systems All systems reviewed & are unremarkable except as noted in HPI and below ENT Ears, Nose, Mouth, and Throat: Denies neck pain Cardiovascular Cardiovascular: Denies leg edema Genitourinary Genitourinary: Denies difficulty voiding and Denies urinary hesitancy Musculoskeletal Musculoskeletal: Denies abnormal gait, Denies deformity, Reports arthralgias (Right hip), Denies limited range of motion, Denies neck pain, Denies numbness, Denies radiating pain into limb and Denies tingling Neurologic Neurologic: Denies abnormal gait, Denies numbness and Denies tingling PFSH Medical History Arthritis Basal cell carcinoma Squamous cell carcinoma Surgical History Appendectomy History of knee surgery S/P skin cancer resection Tonsillectomy and adenoidectomy Social History Smoking/Tobacco Use Status: Former Tobacco Use Smoking risk assessment performed?: Yes Alcohol Intake: current Alcohol Intake frequency: a few times a month Alcohol type: beer Drug use: Occasionally Substance use type: marijuana Do you feel safe at home: No Do you feel safe in your relationship?: No Exam Narrative Exam Narrative: Constitutional: Alert and oriented x3. Appears stated age. Normal body habitus. Head: Normocephalic, no trauma. Eyes: Pupils PERRLA, Red reflex noted, EOM's intact. Eyelids symmetrical without lesions, discharge, or swelling. Musculoskeletal: Normal gait, 5/5 strength to all four extremities. Skin: No suspicious rashes or lesions. Capillary refill less than 2 sec. Neurologic: Cranial nerves II-XII intact. Alert and oriented x 3. Hematologic/Lymphatic: No ecchymosis, no lymphadenopathy. Course Vital Signs Vital signs: Vital Signs Temperature 36.8 C 02/03/21 10:13 Pulse 84 02/03/21 10:13 Respiratory Rate 18 02/03/21 10:13 Blood Pressure 145/92 H 02/03/21 10:13 Pulse Oximetry 99 02/03/21 10:13 Temperature 36.8 C 02/03/21 10:13 Temperature Source Temporal Artery Scan 02/03/21 10:13 Pulse 84 02/03/21 10:13 Respiratory Rate 18 02/03/21 10:13 Respiratory Effort Non-Labored 02/03/21 10:19 Blood Pressure 145/92 H 02/03/21 10:13 Blood Pressure Position Sitting 02/03/21 10:13 Pulse Oximetry 99 02/03/21 10:13 Oxygen Delivery Method Room Air 02/03/21 10:13 Oxygen Flow Rate 0 02/03/21 10:13 Pain Level 6 02/03/21 10:13 PAWSS Have you Been Recently Intoxicated or Drunk Within the Last 30 days?: No Have you Ever Experienced Previous Episodes of Alcohol Withdrawal?: No Have you ever Experienced Withdrawal Seizures?: No Have you ever Experienced Delirium Tremens(DT)s?: No Have you ever undergone Alcohol Rehabilitation Treatment (i.e, inpt ot outpatient treatment programs)?: No Have you ever Experienced Blackouts?: No Have you ever Combined Alcohol with other Downers within the last 90 days?: No Have you ever Combined Alcohol with any other Substance of Abuse during the last 90 days?: No Positive Blood Alcohol level on Presentation? [PCS.BAL]: No Evidence of Increased Autonomic Activity (i.e. HR>120, tremor, sweating, agitation, nausea)?: No Result: 0
[2021-02-03] MEDS: Cyclobenzaprine 10 MG TAB PO (10:52)
[2021-02-03] MEDS: HYDROcodone 5/Acetaminophen 325 TAB PO ×2 (10:53→12:15)
[2021-02-03 12:34] VITALS: BP 114/87; PULSE 70; RESP 16; TEMP 36.4; O2SAT 99
--- NOTE | 2021-02-03 12:38 | DI.VRAD_ITS ---
PROCEDURE INFORMATION: Exam: XR Pelvis Exam date and time: 02/03/2021 10:39 AM Age: 65 years old Clinical indication: Other: Right hip pain TECHNIQUE: Imaging protocol: XR pelvis. Views: 1 or 2 view. COMPARISON: No relevant prior studies available. FINDINGS: Bones/joints: Unremarkable. No acute fracture. Sacroiliac joints, hip joints and pubic symphysis all are intact. Soft tissues: Unremarkable. IMPRESSION: No acute findings. Dictated and Authenticated by: Varghese Rowe MD. Ordering:BERHANE Rosales MD
--- NOTE | 2021-02-03 12:39 | DI.VRAD_ITS ---
PROCEDURE INFORMATION: Exam: XR Right Femur Exam date and time: 02/03/2021 10:39 AM Age: 65 years old Clinical indication: Other: Right hip pain TECHNIQUE: Imaging protocol: XR Right femur. Views: 2 views. COMPARISON: CR XR PELVIS AP 03/02/2021 11:23 FINDINGS: Bones/joints: No fracture or other osseous abnormality. Hip joint and knee joint are grossly intact. Soft tissues: Unremarkable. IMPRESSION: Normal femur. Dictated and Authenticated by: Varghese Rowe MD. Ordering:BERHANE Rosales MD
== END 2021-02-03 13:17 | disposition home or self-care (01) ==
PROVIDERS: Emergency Provider Registered Nurse Emergency; PCP Physician Assistant
DX: M25.551 Pain in right hip (principal)
CPT/HCPCS: 73552; 99284; 72170

== ENCOUNTER 2021-02-08 01:39 | Outpatient (CLI) | payer MEDICAID, SELFPAY ==
--- NOTE | 2021-02-08 09:50 | DI.RAD_ITS ---
Exam(s) XR KNEE LT 3V AP,LAT,RASHID EXAM: XR KNEE LT 3V AP,LAT,RASHID CLINICAL HISTORY: LT KNEE PAIN, M25.562. TECHNIQUE: 2D digital imaging was performed. COMPARISON: No exams were available for comparison FINDINGS: There is no evidence of fracture nor prominent joint effusion. Does appear to be a small amount of i ncreased joint fluid. There are degenerative changes, significantly more so than is seen in the opposite-right knee. There is advanced narrowing of the lateral compartment as seen on the weight-bearing view and marginal ost eophytes. Relative preservation of height of the medial compartment but there are marginal osteophyt es off the medial compartment noted. Mild degenerative changes in the patellofemoral compartment. IMPRESSION: Osteoarthritic degenerative changes in the left knee, as described above. DATA REPOSITORY: RADIATION DOSE DELIVERED:
--- NOTE | 2021-02-08 19:50 | DI.RAD_ITS ---
Exam(s) XR KNEE RT 3V AP,LAT,RASHID EXAM: XR KNEE RT 3V AP,LAT,RASHID CLINICAL HISTORY: RT KNEE PAIN, M25.561. TECHNIQUE: 2D digital imaging was performed. COMPARISON: CR XR KNEE LT 3V AP,LAT,RASHID from 02/08/2021 FINDINGS: There is no evident of fracture or joint effusion. Mild degenerative changes are noted in the medial compartment. Lateral and patellofemoral compartments appear unremarkable. No osseous lesions. IMPRESSION: Mild degenerative changes. DATA REPOSITORY: RADIATION DOSE DELIVERED:
== END 2021-02-08 01:59 ==
PROVIDERS: PCP Physician Assistant; Visit Provider Physician Assistant
DX: M25.561 Pain in right knee (principal); M25.562 Pain in left knee; M17.0 Bilateral primary osteoarthritis of knee
CPT/HCPCS: 73562

== ENCOUNTER 2021-05-04 12:30 | Outpatient (CLI) | payer MEDICAID, SELFPAY ==
--- NOTE | 2021-05-04 10:37 | DI.RAD_ITS ---
Exam(s) XR CLAVICLE LT EXAM: XR CLAVICLE LT CLINICAL HISTORY: CLAVICLE PAIN, M89.8X8. TECHNIQUE: 2D digital imaging was performed. COMPARISON: No exams were available for comparison FINDINGS: No evidence of left clavicle fracture nor offset AC joint. Sternoclavicular joint appears intact. IMPRESSION: DATA REPOSITORY: RADIATION DOSE DELIVERED:
--- NOTE | 2021-05-04 10:37 | DI.RAD_ITS ---
Exam(s) XR STERNUM EXAM: XR STERNUM CLINICAL HISTORY: STERNAL PAIN, R07.2. TECHNIQUE: 2D digital imaging was performed. COMPARISON: CR XR CLAVICLE LT from 05/04/2021 FINDINGS: There is a depressed fracture of the anterior cortex of the manubrium of the sternum. Mid-lower ster num appears intact. There is no retrosternal density obvious large hematoma. IMPRESSION: DATA REPOSITORY: RADIATION DOSE DELIVERED:
== END 2021-05-04 12:50 ==
PROVIDERS: PCP Physician Assistant; Visit Provider Nurse Practitioner Family
DX: R07.2 Precordial pain (principal); M89.8X8 Other specified disorders of bone, other site; S22.22XA Fracture of body of sternum, initial encounter for closed fracture
CPT/HCPCS: 71120; 73000

== ENCOUNTER 2021-10-03 19:16 | Outpatient (REF) | payer MEDICARE, MEDICAID, SELFPAY ==
[2021-10-05 11:57] LABS: HSV Type 1 Ab, IgG Negative (Negative); HSV Type 2 Ab, IgG Positive (Negative)
== END 2021-10-03 19:17 | disposition home or self-care (01) ==
LOC: NCHCN 19:16
PROVIDERS: PCP Physician Assistant; Visit Provider Nurse Practitioner Family
DX: R21 Rash and other nonspecific skin eruption (principal)
CPT/HCPCS: 86695; 86696

== ENCOUNTER → 2021-11-09 06:50 | Outpatient (CLI) | payer MEDICARE, MEDICAID, SELFPAY ==
--- NOTE | 2021-11-09 10:04 | DI.RAD_ITS ---
Exam(s) XR SHOULDER RT COMPLETE 2+V EXAM: XR SHOULDER RT COMPLETE 2+V CLINICAL HISTORY: RT SHOULDER PAIN, M25.511. TECHNIQUE: 2D digital imaging was performed. Five views. COMPARISON: No exams were available for comparison FINDINGS: BONES: No acute fracture is present. No bony destructive lesion is seen. JOINTS: No dislocation present. Glenohumeral joint space is well maintained. No significant spurrin g is noted at the AC joint. SOFT TISSUE: Normal. IMPRESSION: Unremarkable radiographs of the right shoulder. DATA REPOSITORY: RADIATION DOSE DELIVERED:
== END ==
PROVIDERS: PCP Physician Assistant; Visit Provider Physician Assistant
DX: M25.511 Pain in right shoulder (principal)
CPT/HCPCS: 73030

== ENCOUNTER → 2021-12-04 09:33 | Outpatient (BNVA) | payer MEDICARE, MEDICAID, SELFPAY | PROVIDERS: PCP Physician Assistant; Referring Provider Physician Assistant; Visit Provider Student in an Organized Health Care Education/Training Program | DX: M75.51 Bursitis of right shoulder (principal); M75.41 Impingement syndrome of right shoulder; M54.12 Radiculopathy, cervical region | CPT/HCPCS: 99214 ==

== ENCOUNTER 2022-01-24 21:17 | Outpatient (REF) | payer MEDICARE, MEDICAID, SELFPAY ==
[2022-01-24 19:40] LABS: ALT 30 U/L (14-59); AST 22 U/L (15-37); Albumin 4.2 g/dL (3.4-5.0); Alkaline Phosphatase 66 U/L (46-116); Anion Gap 8.6 mmol/L (3-11); BUN 9 mg/dL (7-18); Bilirubin, Total 0.6 mg/dL (0.2-1.0); CO2 28.4 mmol/L (21.0-32.0); CREATININE 0.7 mg/dL (0.55-1.02); Chloride 103 mmol/L (98-107); Estimated GFR 95.92 (mL/min/1.73m2); Glucose 92 mg/dL (74-106); LDL CHOLESTEROL 96 mg/dL (<100); Potassium 3.7 mmol/L (3.5-5.1); Sodium 140 mmol/L (136-145); TSH (W/Ref FT4) 1.67 uIU/mL (0.36-3.74); Total Protein 7.2 g/dL (6.4-8.2)
[2022-01-24 19:42] LABS: Hemoglobin A1C 5.7 % (<5.7)
[2022-01-24 19:45] LABS: Abs Immature Grans 0.01 10^3/uL (0.0-0.06); Absolute Basophil Count 0.03 10^3/uL (0.0-0.2); Absolute Eosinophil Count 0.14 10^3/uL (0.0-0.7); Absolute Lymphocyte Count 2.14 10^3/uL (1.2-3.4); Absolute Neutrophil Count 3.25 10^3/uL (1.2-6.7); Basophils % 0.5; Eosinophils % 2.3; HCT 41.9 % (36.0-46.0); HGB 13.7 g/dL (11.2-15.7); Immature Grans % 0.2; Lymphocytes % 35.8; MCHC 32.7 % (32.0-36.0); MCV 89 fL (80-95); MPV 11.7 fL (8.0-11.0); Monocytes % 6.7; Neutrophils % 54.5; Platelet Count 282 10^3/uL (130-400); RBC 4.73 10^6/uL (3.93-5.22); RDW 13.5 % (11.7-14.6); RDW-SD 43.9 fL; WBC 5.97 10^3/uL (4.4-10.8)
[2022-01-24 19:55] LABS: Vitamin D 25 Total 49.6 ng/mL (30-100)
== END 2022-01-24 21:18 | disposition home or self-care (01) ==
LOC: NCHCN 21:17
PROVIDERS: PCP Physician Assistant; Visit Provider Physician Assistant
DX: N18.30 Chronic kidney disease, stage 3 unspecified (principal); R73.9 Hyperglycemia, unspecified; R55 Syncope and collapse
CPT/HCPCS: 80053; 82306; 83721; 83036; 84443; 85025

== ENCOUNTER 2022-04-12 01:31 | Outpatient (CLI) | payer MEDICARE, MEDICAID, SELFPAY ==
[2022-04-12 10:02] LABS: Hemoglobin A1C 5.7 % (<5.7)
[2022-04-12 11:00] LABS: ALT 20 U/L (14-59); AST 20 U/L (15-37); Alkaline Phosphatase 59 U/L (46-116); Anion Gap 8.5 mmol/L (3-11); BUN 8 mg/dL (7-18); Bilirubin, Total 0.7 mg/dL (0.2-1.0); CO2 26.5 mmol/L (21.0-32.0); CREATININE 0.7 mg/dL (0.55-1.02); Chloride 102 mmol/L (98-107); Estimated GFR 95.92 (mL/min/1.73m2); Folate 17.4 ng/mL (8.6-20.0); Glucose 91 mg/dL (74-106); Potassium 3.7 mmol/L (3.5-5.1); Sodium 137 mmol/L (136-145); Total Protein 6.8 g/dL (6.4-8.2); Vitamin B12 438 pg/mL (193-986)
[2022-04-12 19:38] LABS: CRP, High Sensitivity <0.34 mg/L (See Note)
[2022-04-14 14:09] LABS: Lipoprotein (a) 52 nmol/L (<75)
[2022-04-15 08:33] LABS: Homocysteine 11.3 umol/L (5.0-13.9)
[2022-04-15 08:58] LABS: Insulin <3.0 uIU/mL (<29.0)
[2022-04-16 12:02] LABS: EBNA IgG Negative (Negative); EBV Interpretation (See Note); VCA IgG Positive (Negative); VCA IgM Negative (Negative)
== END 2022-04-12 01:32 | disposition home or self-care (01) ==
LOC: LBO 01:31
PROVIDERS: PCP Physician Assistant; Visit Provider Naturopath
DX: R73.03 Prediabetes (principal); R53.83 Other fatigue; N18.30 Chronic kidney disease, stage 3 unspecified
CPT/HCPCS: 36415; 80053; 80061; 83090; 83695; 86141; 82607; 82728; 82746; 83036; 83525; 83540; 83550; 86664; 86665

== ENCOUNTER → 2022-08-01 09:49 | Outpatient (BNVA) | payer MEDICARE, MEDICAID, SELFPAY | PROVIDERS: PCP Physician Assistant; Referring Provider Physician Assistant; Visit Provider Physical Therapy Assistant | DX: Z12.11 Encounter for screening for malignant neoplasm of colon (principal) ==

== ENCOUNTER 2022-08-07 10:42 | Outpatient (REF) | payer MEDICARE, MEDICAID, SELFPAY ==
[2022-08-07 22:47] LABS: Campylobacter PCR Negative (Negative); Salmonella PCR Negative (Negative); Shiga Toxin PCR Negative (Negative); Shigella/Enteroinvasive Ecoli Negative (Negative)
== END 2022-08-07 10:43 | disposition home or self-care (01) ==
LOC: LBN 10:42
PROVIDERS: PCP Physician Assistant; Visit Provider Nurse Practitioner Family
DX: R19.7 Diarrhea, unspecified (principal)
CPT/HCPCS: 87329; 87505; 87177

== ENCOUNTER 2022-08-08 17:55 | Outpatient (REF) | payer MEDICARE, MEDICAID, SELFPAY ==
[2022-08-08 20:07] LABS: C Diff PCR Negative (Negative)
== END 2022-08-08 17:56 | disposition home or self-care (01) ==
LOC: NCHCN 17:55
PROVIDERS: PCP Physician Assistant; Visit Provider Physician Assistant
DX: R19.7 Diarrhea, unspecified (principal)
CPT/HCPCS: 87493; 83630

== ENCOUNTER 2022-08-22 06:47 | Day surgery (SDC) | payer MEDICARE, MEDICAID, SELFPAY ==
--- NOTE | 2022-08-21 21:22 | PDOC.DSDIS_ITS ---
Date of service: 08/22/22 Time of Service: 08:49 Discharge Plan Disposition Condition: Good Discharge Details Reason For Visit: EGD and colonoscopy Attending Provider: Vishnu Candelario Primary Care Provider: Tabby Maier Home Meds and New Rx's Prescriptions: Continued celecoxib [Celebrex] 200 mg capsule 200 mg PO DAILY PRN Rx Instructions: Take one tablet daily osteothera capsule PO DAILY Rx Instructions: patient reports she takes 2 caps in the am bone builder capsule PO Rx Instructions: 2 tabs am vit D3-vit J-nqtmptyro-txha [phone] zyhd-bxg-sr-mg tablet 1 tab PO DAILY AM pure genomics capsule PO DAILY AM mecobalamin (vitamin B12) [B12 Active] 1,000 mcg tablet,chewable 1,000 mcg PO DAILY Strontium PO HS zoledronic krag-tcmzyqfm-czqth [Reclast] 5 mg/100 mL piggyback IV valerian root 450 mg capsule 450 mg PO HS PRN Vitamin D3 Complete 18 mg iron-800 mcg-150 mg Tablet 2 tab PO DAILY lysine 1,000 mg tablet 1,000 mg PO DAILY PRN Discontinued polyethylene glycol 3350 17 gram/dose powder 238 g PO ONCE Qty: 238 0RF Rx Instructions: take per colonoscopy instructions bisacodyl [Dulcolax (bisacodyl)] 5 mg tablet,delayed release (DR/EC) 5 mg PO ONCE Qty: 4 0RF Rx Instructions: take per colonoscopy instructions Discharge Instructions Instructions: Colorectal Polyps (GEN), Hiatal Hernia (GEN) Additional Instructions: Haydee, we were able to complete your endoscopies today without any difficulty. Your esophagus appeared normal, and you do have a hiatal hernia that contains a fair amount of your stomach. The stomach slides freely in and out of the hernia, and I do not see any evidence of ulceration in the area. I w as able to advance the camera into the first portion of your small intestine, which is known as your duodenum. This also appeared normal. I did perform some random biopsies of your duodenum, stomach, and esophagus. Your colonoscopy was also very straightforward. Like we talked about beforehand, I did not see any obvious signs of colitis to the naked eye. I did perform several biopsies along the entire length of your large intestine to assess for other types of colitis. I did also find 1 polyp around 15 cm from your anus. I removed this completely. I will be in touch when I have the results of the biopsies. 1. If tolerated, consume a soft, low fiber diet for 1-2 days. 2[address] Do not drive, drink alcohol, operate machinery, make critical decisions, or do activities that require coordination or balance for 24 hours. 3. Because air was put into your colon during the procedure, expelling air from your rectum (passing gas or farting) is normal. 4. You may not have a bowel movement for 1-3 days because of the colonoscopy prep. This is normal. 5. You may experience a sore throat for 24 to 48 hours. You may use throat lozenges or gargle with warm salt water to relieve the discomfort. 6. Because air was put into your stomach during the procedure, you may experience some belching. 7. Go directly to the emergency room if you notice any of the following: Develop chills (warm to touch), or if you have a thermometer and your temperature is above 101 Difficulty breathing or difficultly swallowing Persistent vomiting Severe abdominal pain, other than gas cramps Severe chest pain Black, tarry stools Any bleeding ? exceeding one tablespoon 8. Call your physician if the site where your intravenous was started becomes red, swollen, painful, and warm to touch. 9. Your physician has reviewed your pre-procedure medications. Please continue to take those medications as previously ordered. You will be given specific information/education regarding any changes to your medications before leaving. Activity:: Activity as Tolerated Diet:: As Tolerated DS: Diagnosis Discharge Diagnosis (1) Screening for colon cancer: Status: Acute Asessment and Plan: Follow-up on biopsy results
--- NOTE | 2022-08-21 21:25 | W.PM.ENDDOP ---
Date of service: 08/22/22 Time of Service: 08:51 Endoscopy Report DATE OF PROCEDURE: 08/22/22 PRE-OP DIAGNOSIS: GERD and screening colonoscopy POST-OP DIAGNOSIS: other (Hiatal hernia, irregularity of the Z-line, colon polyp) PROCEDURE: EGD and colonoscopy SURGEON: Vishnu Candelario ANESTHESIA TYPE: General:No Airway ESTIMATED BLOOD LOSS: 20 PATHOLOGY: other (Biopsies of duodenum, gastric antrum, gastric body, GE junction, esophagus; random biopsies of colon, and colon polyp at 15 cm) COMPLICATIONS: None DISPOSITION: same day INDICATIONS: Haydee is a 67-year-old woman with longstanding gastroesophageal reflux disease. It has not been treated with proton pump inhibitor therapy. She has ongoing symptoms. Therefore, screening endoscopy for Catalan's esophagus is warranted. She is also of the appropriate age for screening colonoscopy. PREP: Miralax/Dulcolax PROCEDURE START TIME: 08:14 PROCEDURE END TIME: 08:41 COLONOSCOPY RETRACTION TIME: 11 FINDINGS: Large hiatal hernia; colon polyp at 15 cm from anus PROCEDURE DESCRIPTION: After the initiation of monitored anesthetic care, and with the assistance of a bite block, I advanced a standard gastroscope through the mouth past the hypopharynx and into the esophagus.? Under the direct vision of the scope, I advanced down the esophagus into the stomach.? There was some very mild irregularity of the GE junction, which I estimate 36 cm from the incisors. There was a large hiatal hernia containing a significant portion of the gastric body. The hiatus measures around 45 cm from the incisors. Once I entered the true stomach, distal to the hiatus, I performed a brief inspection, followed by retroflexion towards the gastric cardia.? I did not see any signs of irritation or inflammation along the hiatal hernia. The stomach appeared to slide freely along it..? After that, I gently advanced the scope around the incisura angularis and examined the pylorus.? This also appeared normal.? Next, I advanced the scope through the pylorus into the duodenum.? The mucosa was pink and healthy appearing.? There were no abnormalities.? I was able to visualize bile draining into the duodenum through the ampulla Vater. ?I perform some random biopsies of the duodenum. Next, I began retracting the endoscope.? I brought the scope back into the stomach, and performed random biopsies of the antrum and gastric body.? I then gently desufflated some of the stomach, and withdrew the endoscope into the distal esophagus. Again, there was one small lip of irregularity along the Z-line. I did perform some random biopsies of the GE junction. I withdrew the scope along the length of the esophagus and performed biopsies of the lower middle and upper portions. ?Grossly, the esophagus appeared normal. Next, we moved Haydee into the left lateral decubitus position, I began by performing an external anorectal exam.? Perineum and skin were normal, as was the anal verge.? There was no evidence of external hemorrhoids.? Next, I performed a digital rectal exam.? I did not appreciate any abnormal findings.? Next, I advanced a colonoscope into the rectal vault.? I performed retroflexion.? This appeared normal.? Using insufflation, I then advanced the colonoscope beyond the rectal folds and into the sigmoid colon before advancing towards the cecum.? The quality of the prep was excellent.? The scope was noted to be in the cecum by identification of the ileocecal valve and appendiceal orifice.? I then began withdrawing the colonoscope using repeated irrigation as necessary for full evaluation of the colonic mucosa. ?I did perform biopsies of the cecum, ascending, transverse and descending colons. These were all random and sent as 1 specimen. Around 15 cm from the anal verge I identified a 0.25 cm polyp. ?It appeared sessile in character. ?I was able to remove this with a cold forcep polypectomy. ?I examined the site, and there was minimal bleeding. ?Once this was completed, I continued to withdraw the scope and examine the remainder of the colonic mucosa. Once the scope was withdrawn to the level of the rectum, great care was taken to examine portions of the rectal folds.? Finally, the scope was withdrawn and the patient was brought to the same-day surgery recovery unit as the anesthetic wore off. ?The findings and instructions were shared with the patient prior to discharge..
[2022-08-22 07:00] VITALS: BP 108/74; PULSE 58; RESP 18; TEMP 36.4; O2SAT 98
[2022-08-22] MEDS: Lactated Ringers 1,000 ML 80 ML IV (07:34)
--- NOTE | 2022-08-22 07:43 | ANES.PREOP_ITS ---
General Info Date of Service Date Performed: 08/22/22 Height: 5 ft 10 in Weight: 60.6 kg Body Mass Index (BMI): 19.1 Surgical Procedure: Operation Date: 08/22/22 08:20 Proposed Procedure Side Surgeon p Colonoscopy/Gastroscopy Vishnu Candelario MD Meds Allergies and Home Medications Allergies Allergy/AdvReac Type Severity Reaction Status Date / Time clams AdvReac hives Unverified 08/22/22 06:56 Home Medication Medication Instructions Recorded multivit with 2 tab PO DAILY 09/30/20 [id number] 18 mg iron-800 mcg-150 mg tablet (Vitamin D3 Complete) celecoxib 200 mg capsule (Celebrex) 200 mg PO DAILY PRN 12/04/21 lysine 1,000 mg tablet 1,000 mg PO DAILY PRN 12/04/21 valerian root 450 mg capsule 450 mg PO HS PRN 06/05/22 zoledronic acid 5 mg/100 mL in IV 06/05/22 mannitol 5 %-water intravenous piggybck (Reclast) Strontium PO HS 08/02/22 bone builder PO 08/02/22 mecobalamin (vitamin B12) 1,000 1,000 mcg PO DAILY 08/02/22 mcg chewable tablet (B12 Active) osteothera PO DAILY 08/02/22 pure genomics PO DAILY AM 08/02/22 vitamin D3 500 unit-vit K 500 1 tab PO DAILY AM 08/02/22 mcg-berberine 90 mg-hops 370 mg tablet Current Visit Medications: Current Medications Generic Name Dose Route Start Last Admin Trade Name Freq PRN Reason Stop Dose Admin Hyoscyamine Sulfate 0.125 mg 08/21/22 21:26 Hyoscyamine 0.125 Mg Sl/Oral/Chew SL DIRECTED PRN Ringer's Solution 1,000 mls @ 80 mls/hr 08/22/22 06:00 08/22/22 07:34 IV 09/20/22 23:59 80 mls/hr INFUSION RYAN Administration IV Miscellaneous Supplies 1 each 08/22/22 06:00 Iv Access IV 09/20/22 23:59 DIRECTED RYAN Ondansetron HCl 4 mg 08/21/22 21:26 Ondansetron 4 Mg/2 Ml Vial IVP Q4H PRN PRN Nausea / Vomiting Sodium Chloride 0 ml 08/22/22 06:00 Normal Saline Flush 10 Ml Syr IV 09/20/22 23:59 PRN PRN Sodium Chloride 0 ml 08/22/22 06:00 Normal Saline 10 Ml Vial IJ 09/20/22 23:59 DIRECTED PRN Sterile Water 0 ml 08/22/22 06:00 Water,Injection,Sterile 10 Ml Vial IJ 09/20/22 23:59 DIRECTED PRN PFSH Active Problems Active Problems: Problem Status Onset Code Screening for colon cancer Z12.11 Palpitations R00.2 Chest wall pain R07.89 Foreign body of skin of hand S60.559A Hip pain, right M25.551 Arthritis of left knee M17.12 Arthritis of right knee M17.11 Right hip tendonitis M76.891 RLS (restless legs syndrome) G25.81 Anxiety F41.9 GERD (gastroesophageal reflux disease) K21.9 Premature atrial contraction I49.1 Bursitis of right shoulder M75.51 Impingement syndrome of right shoulder M75.41 Cervical radiculopathy M54.12 Hiatal hernia K44.9 Ingrown toenail L60.0 Chronic kidney disease N18.9 Medical History Medical History Arthritis Basal cell carcinoma Diarrhea New onset diarrhea Malaise Osteoporosis Pain in right shoulder Paroxysmal atrial fibrillation Squamous cell carcinoma Surgical History Surgical History Appendectomy History of knee surgery S/P skin cancer resection Tonsillectomy and adenoidectomy Tobacco Smoking/Tobacco Use Status: Never Alcohol Alcohol Intake: current Alcohol intake frequency: a few times a month Alcohol type: beer Substance Use Substance use: Daily Substance use type: marijuana Vital Signs and Lab Results Vital Signs Most Recent Vital Signs in EMR: Most Recent Vital Signs Temp Pulse Resp BP Pulse Ox 36.4 C L 58 L 18 108/74 98 08/22/22 07:00 08/22/22 07:00 08/22/22 07:00 08/22/22 07:00 08/22/22 07:00 Lab Results Blood Type / Crossmatch: No Data to Display Complete Blood Count: No Data to Display Complete Metabolic Panel: No Data to Display Liver Function Panel: No Data to Display Coagulation Panel: No Data to Display Cardiac Panel: No Data to Display Arterial Blood Gas: No Data to Display Venous Blood Gas: 2 No Data to Display Pancreas Panel: No Data to Display Thyroid Panel: No Data to Display Infectious Disease: No Data to Display Blood Cultures: No Data to Display Toxicology Panel: No Data to Display Imaging and Studies Imaging and Studies Study information below may be from another EMR and interpreted by another provider. Please see original notes in EMR for more complete details. EKG Summary: Conclusion Sinus rhythm...normal P axis, V-rate 60- 99 Left anterior fascicular block...axis(240,-40), init forces inf. No STEMI. I have reviewed and interpreted ECG and agree with software generated interpretation. 08/09 Other Study Summary:: Conclusion This was a 48-hour Holter monitor ordered for palpitations Predominant rhythm was sinus with an average heart rate of 68. Minimum was 48, maximum 123 There were rare atrial and ventricular ectopic beats. There were several brief atrial runs Sinus bradycardia and Mobitz 1 second-degree AV block was noted during sleep There appeared to be an episode of atrial fibrillation lasting less than a minute, rate approximately 140, asymptomatic Patient symptoms seem to correlate to sinus rhythm 2020 Anesthesia Assessment and Plan Anesthesia History Personal History: No History of Anesthesia Complications Family History: No Family History of Anesthesia Complications Exercise Tolerance Exercise Tolerance: Metabolic Equivalents>4 Pertinent Negatives Pertinent Negatives: No Symptoms of GERD Cardiac & Pulmonary Exam Cardiac Exam: Normal S1/S2 Heart Sounds Pulmonary Exam: Clear Bilateral Breath Sounds Implantable Cardiac Device Does patient have a Pacemaker or an ICD?: No Airway Exam Known Difficult Airway: No Mallampati Class: 2 Mouth Opening: Normal (> 3cm) Thyromental Distance: Greater than 3 cm Neck Range of Motion: Full ROM Neck Circumference: Normal Teeth Condition: Normal Dentition ASA Classification ASA Score: ASA 2 Emergency Case?: No NPO Status NPO Status: NPO Clears >2 hours, Solids >8 hours Anesthesia Plan Resuscitation Status: Full Code Anesthesia Technique: General Anesthesia Airway Planned: Natural Airway Monitors Used: Standard Monitors
[2022-08-22 08:04] VITALS: BMI 19.1
--- NOTE | 2022-08-22 08:16 | STOM_PTH ---
PATIENT: Haydee Brizuela LOC: [facility] U#:[id number] AGE/SX: 67/F ROOM: RE08/22/[address]: Vishnu Candelario MD : [id number] BED: DIS: 08/22/2022 SPEC #: [id number] RECD: 08/22/22 12:53 STATUS: YULIA RE #: [id number] ADELITA: 08/22/22 08:[address]: Vishnu Candelario DEPT: Surgical Specimen RECD BY: Hailey Espitia ENTERED: 08/22/22 12:54 SP TYPE: STOMACH OTHR DR: Tabby Maier Tissues: 1 - BIOPSY BOWEL 2 - STOMACH BIOPSY 3 - STOMACH BIOPSY 4 - ESOPHAGUS BIOPSY 5 - ESOPHAGUS BIOPSY 6 - BIOPSY BOWEL 7 - BIOPSY BOWEL Procedures: GROSS AND MICRO LEVEL 4 Comments: [id number]
[2022-08-22 08:50] VITALS: BP 112/78; PULSE 73; RESP 17; TEMP 36.4; O2SAT 98
[2022-08-22 09:20] VITALS: BP 117/82; PULSE 61; RESP 17; TEMP 36.7; O2SAT 100
--- NOTE | 2022-08-22 15:19 | W.ANESPOSTOP ---
Postoperative Evaluation Date, Time and Location Date Performed: 08/22/22 Time Performed: 15:19 Patient Location: Day Surgery Unit Vital Signs Most Recent Imported Vital Signs: Most Recent Vital Signs Temp Pulse Resp BP Pulse Ox 36.7 C 61 17 117/82 100 08/22/22 09:20 08/22/22 09:20 08/22/22 09:20 08/22/22 09:20 08/22/22 09:20 Pain Score Most Recent Pain Score: Most Recent Pain Score Pain Level 0 08/22/22 09:20 Assessment Mental Status: Awake (Alert & Oriented to Patient Baseline) Airway and Respiratory Function: Patent airway with normal (patient baseline) respiratory exam Cardiovascular Function: Hemodynamically Stable Hydration Status: Adequately Hydrated Nausea & Vomiting: No Nausea or Vomiting Pain: Pt. Denies Any Pain Peripheral Nerve Block: Patient did not receive a nerve block
== END 2022-08-22 09:36 | disposition home or self-care (01) ==
PROVIDERS: PCP Physician Assistant; Visit Provider Surgery
PROC: (CPT 45380; principal; 2022-08-22 08:15)
DX: Z12.11 Encounter for screening for malignant neoplasm of colon (principal); K21.9 Gastro-esophageal reflux disease without esophagitis; K44.9 Diaphragmatic hernia without obstruction or gangrene; K63.5 Polyp of colon; K52.832 Lymphocytic colitis
CPT/HCPCS: 45380; 43239; 88305

== ENCOUNTER 2022-09-10 15:38 | Outpatient (CLI) | payer MEDICARE, MEDICAID, SELFPAY ==
[2022-09-10 16:17] LABS: Vitamin D 25 Total 56.7 ng/mL (30-100)
[2022-09-10 16:21] LABS: ALT 26 U/L (14-59); AST 21 U/L (15-37); Albumin 4.3 g/dL (3.4-5.0); Alkaline Phosphatase 63 U/L (46-116); Anion Gap 8.8 mmol/L (3-11); BUN 7 mg/dL (7-18); Bilirubin, Total 0.5 mg/dL (0.2-1.0); CO2 29.2 mmol/L (21.0-32.0); CREATININE 0.8 mg/dL (0.55-1.02); Calcium 9.6 mg/dL (8.5-10.1); Chloride 102 mmol/L (98-107); Estimated GFR 81.21 (mL/min/1.73m2); Glucose 90 mg/dL (74-106); Magnesium 2.3 mg/dL (1.8-2.4); Potassium 3.5 mmol/L (3.5-5.1); Sodium 140 mmol/L (136-145); Total Protein 7.5 g/dL (6.4-8.2); Vitamin B12 1266 pg/mL (193-986)
[2022-09-10 16:26] LABS: Folate > 20.0 ng/mL (8.6-20.0)
[2022-09-12 13:46] LABS: IgA 182 mg/dL (85-499); IgG 651 mg/dL (610-1616); IgM 78 mg/dL (35-242)
[2022-09-13 10:56] LABS: Corn-Food IgE <0.10 kU/L (<0.70); Egg Yolk, IgE <0.10 kU/L (<0.70); Soybean IgE <0.10 kU/L (<0.70)
[2022-09-18 16:20] LABS: Corn IgG <2.0 mcg/mL; Egg Yolk IgG <2.0 mcg/mL; Soybean IgG <2.0 mcg/mL
== END 2022-09-10 15:39 | disposition home or self-care (01) ==
LOC: LBO 15:39
PROVIDERS: PCP Physician Assistant; Visit Provider Naturopath
DX: E55.9 Vitamin D deficiency, unspecified (principal); R19.7 Diarrhea, unspecified
CPT/HCPCS: 36415; 80053; 82306; 82784; 86001; 82607; 82746; 83735; 86003

== ENCOUNTER 2022-10-11 15:25 | Outpatient (CLI) | payer MEDICARE, MEDICAID, SELFPAY ==
[2022-10-11 15:35] LABS: Kit/Specimen SENT
== END 2022-10-11 15:26 | disposition home or self-care (01) ==
LOC: LBO 15:26
PROVIDERS: PCP Physician Assistant; Visit Provider Naturopath
DX: Z01.82 Encounter for allergy testing (principal)
CPT/HCPCS: 36415

== ENCOUNTER → 2022-10-28 13:39 | Outpatient (BNVA) | payer MEDICARE, MEDICAID, SELFPAY | PROVIDERS: PCP Physician Assistant; Referring Provider Physician Assistant; Visit Provider Student in an Organized Health Care Education/Training Program | DX: M17.11 Unilateral primary osteoarthritis, right knee (principal); M17.12 Unilateral primary osteoarthritis, left knee | CPT/HCPCS: 99213 ==

== ENCOUNTER 2023-04-12 09:59 | Emergency (ER) | payer OTHER, MEDICAID, SELFPAY ==
[2023-04-12 10:03] VITALS: BP 166/101; PULSE 95; RESP 20; TEMP 36.7; O2SAT 99
[2023-04-12 10:09] VITALS: BP 166/101; PULSE 95; RESP 20; RESP 24; TEMP 36.7; O2SAT 99
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
[2023-04-12] MEDS: LORazepam 1 MG TAB PO (10:50)
[2023-04-12 10:54] VITALS: BP 130/72; PULSE 77
[2023-04-12] MEDS: Normal Saline 500 ML IV (10:54)
[2023-04-12 10:55] LABS: Abs Immature Grans 0.02 10^3/uL (0.0-0.06); Absolute Basophil Count 0.04 10^3/uL (0.0-0.2); Absolute Eosinophil Count 0.01 10^3/uL (0.0-0.7); Absolute Lymphocyte Count 1.14 10^3/uL (1.2-3.4); Absolute Monocyte Count 0.37 10^3/uL (0.1-0.8); Absolute Neutrophil Count 5.51 10^3/uL (1.2-6.7); Basophils % 0.6; Eosinophils % 0.1; HGB 15.1 g/dL (11.2-15.7); Immature Grans % 0.3; Lymphocytes % 16.1; MCH 29.4 pg (27.0-33.0); MCHC 33.6 % (32.0-36.0); MCV 88 fL (80-95); MPV 9.8 fL (8.0-11.0); Monocytes % 5.2; Neutrophils % 77.7; Platelet Count 298 10^3/uL (130-400); RBC 5.14 10^6/uL (3.93-5.22); RDW 13.2 % (11.7-14.6); RDW-SD 42.2 fL; WBC 7.09 10^3/uL (4.4-10.8)
[2023-04-12 11:00] VITALS: BP 129/78; PULSE 77
[2023-04-12 11:08] LABS: ALT 29 U/L (14-59); AST 23 U/L (15-37); Albumin 5.2 g/dL (3.4-5.0); Alkaline Phosphatase 57 U/L (46-116); BUN 5 mg/dL (7-18); Bilirubin, Total 0.9 mg/dL (0.2-1.0); CREATININE 0.8 mg/dL (0.55-1.02); Calcium 9.9 mg/dL (8.5-10.1); Chloride 99 mmol/L (98-107); Estimated GFR 81.21 (mL/min/1.73m2); Glucose 111 mg/dL (74-106); Magnesium 2.2 mg/dL (1.8-2.4); Potassium 3.5 mmol/L (3.5-5.1); Sodium 136 mmol/L (136-145); Total Protein 8.6 g/dL (6.4-8.2)
[2023-04-12 11:16] VITALS: BP 123/78; PULSE 74
[2023-04-12 11:17] LABS: TSH (W/Ref FT4) 2.26 uIU/mL (0.36-3.74)
[2023-04-12 11:31] VITALS: BP 121/78; PULSE 73
--- OUTSIDE RECORDS SUMMARY | 2023-04-12 12:08 | XMS_ITS | Continuity of Care Document ---
Author Name Unknown Organization [facility] Address [address] [place] [address] Care Team Providers Care Marine Firefighter Name Role Phone Winston BRAUNYan Primary Care Physician Encounter [facility] Date(s): 05/09/22 - 05/09/[address] [address] Discharge Disposition: Home or Self Care Attending Physician: Tabby Maier PA-C Admitting Physician: Tabby Maier PA-C Referring Physician: Tabby Maier PA-C Allergies, Adverse Reactions, Alerts No Known Medication Allergies Substance Reaction Severity Status ADHESIVE Unknown Active CLAMS Urticaria Unknown Active Medications CeleBREX 200 mg oral capsule 200 mg = 1 cap, 0 Refill(s) Start Date: 03/22/22 Status: Ordered lysine 0 Refill(s) Start Date: 03/22/22 Status: Ordered Vitamin C 0 Refill(s) Start Date: 03/22/22 Status: Ordered Vitamin D3 0 Refill(s) Start Date: 03/22/22 Status: Ordered Zinc 0 Refill(s) Start Date: 03/22/22 Status: Ordered Procedures Procedure Date Related Diagnosis Body Site Status Colonoscopy, flexible; with biopsy, single or multiple 03/14/09 Completed Esophagogastroduodenoscopy, flexible, transoral; with biopsy, single or multiple 03/14/09 Completed Appendectomy; Completed Arthroscopic Surgery-extremi ty unspecified 1 Completed Procedure on knee 2 Compl eted Tonsillectomy 3 Completed 1arthroscopic surgery-extremity unspecified 2unspecified laterality and type of surgery 3age unspecified Social History Social History Type Response Sex Female Patient Care team information Personnel Name: Yan Fung MD Address: Address: [address] [address]
[2023-04-16 15:15] LABS: 1,25-Dihydroxyvitamin D 77 pg/mL (18-78)
== END 2023-04-12 12:07 | disposition home or self-care (01) ==
LOC: ER 12:06
PROVIDERS: Emergency Provider Student in an Organized Health Care Education/Training Program; PCP Physician Assistant
DX: F41.9 Anxiety disorder, unspecified (principal); T45.2X1A Poisoning by vitamins, accidental (unintentional), initial encounter; M81.0 Age-related osteoporosis without current pathological fracture
CPT/HCPCS: 80053; 96360; 99284; 82652; 83735; 84443; 85025

== ENCOUNTER 2023-05-08 15:30 | Outpatient (REF) | payer OTHER, MEDICAID, SELFPAY ==
[2023-05-08 18:45] LABS: Abs Immature Grans 0.01 10^3/uL (0.0-0.06); Absolute Basophil Count 0.05 10^3/uL (0.0-0.2); Absolute Eosinophil Count 0.06 10^3/uL (0.0-0.7); Absolute Lymphocyte Count 1.94 10^3/uL (1.2-3.4); Absolute Monocyte Count 0.41 10^3/uL (0.1-0.8); Absolute Neutrophil Count 4.65 10^3/uL (1.2-6.7); Basophils % 0.7; Eosinophils % 0.8; HCT 40.1 % (36.0-46.0); HGB 13.3 g/dL (11.2-15.7); Immature Grans % 0.1; Lymphocytes % 27.2; MCH 29.3 pg (27.0-33.0); MCHC 33.2 % (32.0-36.0); MCV 88 fL (80-95); Monocytes % 5.8; Neutrophils % 65.4; Platelet Count 276 10^3/uL (130-400); RBC 4.54 10^6/uL (3.93-5.22); RDW 13.3 % (11.7-14.6); RDW-SD 43.6 fL; WBC 7.12 10^3/uL (4.4-10.8)
[2023-05-08 19:15] LABS: Hemoglobin A1C 5.5 % (<5.7)
[2023-05-08 19:21] LABS: ALT 29 U/L (14-59); AST 20 U/L (15-37); Albumin 4.2 g/dL (3.4-5.0); Alkaline Phosphatase 41 U/L (46-116); Anion Gap 11.7 mmol/L (3-11); BUN 7 mg/dL (7-18); Bilirubin, Total 0.7 mg/dL (0.2-1.0); CO2 24.3 mmol/L (21.0-32.0); CREATININE 0.8 mg/dL (0.55-1.02); Calcium 9.4 mg/dL (8.5-10.1); Calculated LDL 96 mg/dL (<100); Chloride 102 mmol/L (98-107); Cholesterol 213 mg/dL (<200); Estimated GFR 81.21 (mL/min/1.73m2); Glucose 90 mg/dL (74-106); HDL Cholesterol 109 mg/dL (40-60); Potassium 3.7 mmol/L (3.5-5.1); Sodium 138 mmol/L (136-145); Total Protein 7.1 g/dL (6.4-8.2); Triglyceride 44 mg/dL (<150)
== END 2023-05-08 15:31 | disposition home or self-care (01) ==
LOC: NCHCN 15:30
PROVIDERS: PCP Physician Assistant; Visit Provider Physician Assistant
DX: R73.09 Other abnormal glucose (principal); I48.0 Paroxysmal atrial fibrillation; R79.89 Other specified abnormal findings of blood chemistry; M81.0 Age-related osteoporosis without current pathological fracture
CPT/HCPCS: 80053; 80061; 83036; 85025

== ENCOUNTER 2024-04-22 01:43 | Outpatient (CLI) | payer MEDICARE, MEDICAID, SELFPAY ==
--- NOTE | 2024-04-22 | DI.MRI_ITS ---
Exam(s) MR UPPER JOINT LT WO EXAM: MR UPPER JOINT LT WO CLINICAL HISTORY: LT WRIST PAIN M25.532 EVAL DORSAL CARPAL GANGLION DUE TO PAIN INTERMITTENT. TECHNIQUE: Multiplanar multisequence MRI was performed. COMPARISON: None. No exams were available for comparison FINDINGS: BONES: There is no evidence of acute fracture nor bone contusion. There is a remote corticated ulnar styloid fracture. No evidence of avascular necrosis. JOINTS: There is significant articular cartilage loss and joint narrowing in the radiocarpal joint as well as the articulation between the distal ulna and triquetrum bone, including degenerative subarti cular cysts within the medial aspect of the triquetrum bone which is located adjacent to the remotely fractured ulnar styloid. On the lateral aspect of the radiocarpal joint there is a degenerative sub articular cyst in the lateral aspect of the scaphoid-navicular bone with this being adjacent are cont inuous with a small para-articular ganglia on cyst at this level which measures 4 x 3 mm Scapholunate distance is normal. There are only mild degenerative changes at the 1st carpometacarpal joint. LIGAMENTS: Scapholunate ligament appears intact. No obvious tear of the lunotriquetral ligament TENDONS: Carpal tunnel:Unremarkable Flexors: Unremarkable. No tears nor tenosynovitis. Extensors: There is mild tenosynovitis of the extensor carpi radialis longus and brevis. There are no tears of these tendons. MUSCLES: No abnormal signal. MEDIAN NERVE: Unremarkable on this noncontrast examination. LIGAMENTS: Unremarkable. TRIANGULAR FIBROCARTILAGE: Abnormal signal consistent with tearing, this just medial to the chronical ly fractured ulnar styloid. OTHER: IMPRESSION: Mild multilevel findings including degenerative changes in the radiocarpal joint and intercarpal join ts as described above. There is no abnormal widening of the scapholunate distance. There is a small para-articular ganglia on cyst on the lateral aspect of the wrist adjacent to the la teral aspect of the distal scaphoid-navicular and continuous with a degenerative cyst within the dist al lateral aspect of the scaphoid. This small laterally located ganglion cyst measures 3 mm x 4 mm. There is a tear in the triangular fibrocartilage complex just medial to the chronically fractured uln ar styloid process. The chronically fractured fragment is corticated. DATA REPOSITORY:
--- NOTE | 2024-04-22 16:07 | DI.VRAD_ITS ---
PROCEDURE INFORMATION: Exam: MR Left Upper Extremity Joint Without Contrast; Wrist Exam date and time: 04/22/2024 10:11 AM Age: 68 years old Clinical indication: Left; Patient HX: Lt wrist pain m25.532 eval dorsal carpal ganglion due to pain intermittent TECHNIQUE: Imaging protocol: Magnetic resonance imaging of the left upper extremity without contrast. Exam focused on the wrist. COMPARISON: No relevant prior studies available. FINDINGS: Bones/joints: Large ulnar styloid ossicle. Small amount of fluid in the DRUJ. Small radiocarpal and intercarpal effusions. Minimal ECU tenosynovitis. Advanced degenerative arthritis in the radiocarpal joint and ulnocarpal joint with high-grade chondromalacia on both sides of the joint. Degenerative arthritis in the intercarpal spaces and DRUJ Scapholunate ligament: Unremarkable. No tear. Lunotriquetral ligament: Unremarkable. No tear. Triangular fibrocartilage complex: Heterogeneous appearance of the triangular fibrocartilage complex, especially at the ulnar attachment, consistent with partial tearing. Flexor compartment tendons: Unremarkable. No tear. Extensor compartment tendons: Minimal tenosynovitis extensor carpi radialis brevis and longus. Slight increased T2 signal in the extensor carpi ulnaris tendon is of minimal tendinopathy. Soft tissues: Unremarkable. No ganglion cyst identified. IMPRESSION: 1. Mild tenosynovitis extensor carpi radialis brevis and longus and extensor carpi ulnaris 2. Minimal ECU tendinopathy 3. Degenerative arthritis DRUJ, radiocarpal, ulnocarpal, intercarpal spaces 3. Partial tearing of the ulnar attachment of the TFCC with a large ulnar styloid ossicle Dictated and Authenticated by: Yamileth Loyd MD. Ordering:CRIS Rosenberg MD
== END 2024-04-22 02:03 ==
PROVIDERS: PCP Physician Assistant; Visit Provider Physician Assistant
DX: M25.532 Pain in left wrist (principal)
CPT/HCPCS: 73221

== ENCOUNTER 2024-05-11 12:33 | Outpatient (REF) | payer MEDICARE, MEDICAID, SELFPAY ==
[2024-05-11 20:28] LABS: Hemoglobin A1C 5.6 % (<5.7)
[2024-05-11 20:51] LABS: ALT 29 U/L (14-59); AST 21 U/L (15-37); Albumin 4.2 g/dL (3.4-5.0); Alkaline Phosphatase 50 U/L (46-116); Anion Gap 8.8 mmol/L (3-11); BUN 7 mg/dL (7-18); Bilirubin, Total 0.49 mg/dL (0.2-1.0); CO2 29.2 mmol/L (21.0-32.0); CREATININE 0.7 mg/dL (0.55-1.02); Calcium 9.3 mg/dL (8.5-10.1); Chloride 106 mmol/L (98-107); Estimated GFR 94.73 (mL/min/1.73m2); Glucose 90 mg/dL (74-106); Potassium 3.9 mmol/L (3.5-5.1); Sodium 144 mmol/L (136-145); Total Protein 6.8 g/dL (6.4-8.2); Vitamin B12 739 pg/mL (193-986); Vitamin D 25 Total 57.9 ng/mL (30-100)
== END 2024-05-11 12:34 | disposition home or self-care (01) ==
LOC: NCHCN 12:33
PROVIDERS: PCP Physician Assistant; Visit Provider Physician Assistant
DX: R73.9 Hyperglycemia, unspecified (principal); N18.30 Chronic kidney disease, stage 3 unspecified
CPT/HCPCS: 80053; 82306; 82607; 83036

== ENCOUNTER 2024-06-28 11:51 | Outpatient (CLI) | payer MEDICARE, MEDICAID, SELFPAY ==
[2024-06-28 12:10] LABS: Anion Gap 8.4 mmol/L (3-11); BUN 12 mg/dL (7-18); CO2 30.6 mmol/L (21.0-32.0); CREATININE 0.9 mg/dL (0.55-1.02); Calcium 10.1 mg/dL (8.5-10.1); Chloride 98 mmol/L (98-107); Estimated GFR 70.07 (mL/min/1.73m2); Glucose 95 mg/dL (74-106); Potassium 3.8 mmol/L (3.5-5.1); Sodium 137 mmol/L (136-145)
== END 2024-06-28 11:52 | disposition home or self-care (01) ==
LOC: LBO 11:51
PROVIDERS: PCP Physician Assistant; Visit Provider Internal Medicine Endocrinology, Diabetes & Metabolism
DX: M81.0 Age-related osteoporosis without current pathological fracture (principal); R82.994 Hypercalciuria
CPT/HCPCS: 36415; 80048

== ENCOUNTER 2024-08-12 16:34 | Outpatient (REF) | payer MEDICARE, MEDICAID, SELFPAY ==
[2024-08-12 15:04] LABS: Creatinine,Urine 35.83 mg/dL
[2024-08-12 15:07] LABS: Creatinine,24hr Ur 1.07 g/24hr (0.60-1.80); Total Volume 3000 ml
[2024-08-13 09:27] LABS: Calcium Urine 8.7 mg/dL (See Note); Calcium Urine 24 hr 261 mg/24hr (100-300); Timed Urine Volume 3000 mL
== END 2024-08-12 16:35 | disposition home or self-care (01) ==
LOC: LBN 16:34
PROVIDERS: PCP Physician Assistant; Visit Provider Internal Medicine Endocrinology, Diabetes & Metabolism
DX: R82.994 Hypercalciuria (principal)
CPT/HCPCS: 81050; 82340; 82570

== ENCOUNTER 2024-09-15 15:28 | Outpatient (REF) | payer MEDICARE, MEDICAID, SELFPAY ==
[2024-09-19 19:10] LABS: Anaplasma phagocytophilum Negative (Negative); B. miyamotoi PCR Negative (Negative); Babesia divergens/MO-1 Negative (Negative); Babesia duncani Negative (Negative); Babesia microti Negative (Negative); Ehrlichia chaffeensis Negative (Negative); Ehrlichia ewingii/canis Negative (Negative); Ehrlichia muris eauclairensis Negative (Negative)
== END 2024-09-15 15:29 | disposition home or self-care (01) ==
LOC: NCHCN 15:28
PROVIDERS: PCP Physician Assistant; Visit Provider Physician Assistant
DX: S50.861A Insect bite (nonvenomous) of right forearm, initial encounter (principal); W57.XXXA Bitten or stung by nonvenomous insect and other nonvenomous arthropods, initial encounter
CPT/HCPCS: 87798

== ENCOUNTER 2024-09-24 13:06 | Outpatient (REF) | payer MEDICARE, MEDICAID, SELFPAY ==
[2024-09-27 11:41] LABS: Lyme Ab w Rflx to Lyme Confirm Negative (Negative)
== END 2024-09-24 13:07 | disposition home or self-care (01) ==
LOC: NCHCN 13:06
PROVIDERS: PCP Physician Assistant; Visit Provider Physician Assistant
DX: T14.90XA Injury, unspecified, initial encounter (principal); W57.XXXA Bitten or stung by nonvenomous insect and other nonvenomous arthropods, initial encounter
CPT/HCPCS: 86618